=== PATIENT | female | born 1990 | race Hispanic/Latino ===

== ENCOUNTER 2016-10-01 11:07 | Emergency (ER) | payer MEDICAID ==
[2016-10-01 11:32] VITALS: BMI 40.0
[2016-10-01 11:35] VITALS: TEMP 98.6; O2SAT 98
--- NOTE | 2016-10-01 12:10 | ED PDOC ---
Arrival/HPI - General Chief Complaint: Female Genitourinary Time Seen by Provider: 10/01/16 11:54 Historian: Patient - History of Present Illness Narrative History of Present Illness (Text): 10/01/16 12:07 26 y.o. female whose PMHx includes Bipolar d/o and is ; she says she got her regular menses last month from 08/27 - 08/31 but her expected period has not come this month. She took a home test which was positive twice over the past two days. She denies any symptoms such as breast tenderness or nausea. She says she gets an occasional suprapubic pressure but no urinary symptoms. She says she recently started two medications for her bipolar but no acute psych symptoms. Past Medical History - Infectious Disease Hx of Infectious Diseases: None - Tetanus Immunization Tetanus Immunization: Unknown - Past Medical History Past Medical History: No Previous - Cardiac Hx Cardiac Disorders: No - Pulmonary Hx Respiratory Disorders: No - Neurological Hx Neurological Disorder: No - HEENT Hx HEENT Disorder: No - Renal Hx Renal Disorder: No - Endocrine/Metabolic Hx Endocrine Disorders: No - Hematological/Oncological Hx Blood Disorders: Yes Hx Anemia: Yes - Integumentary Hx Dermatological Disorder: No - Musculoskeletal/Rheumatological Hx Musculoskeletal Disorders: No - Gastrointestinal Hx Gastrointestinal Disorders: Yes - Genitourinary/Gynecological Hx Genitourinary Disorders: No - Psychiatric Hx Psychophysiologic Disorder: Yes Hx Bipolar Disorder: Yes Hx Depression: No Hx Substance Use: No - Surgical History Hx Section: Yes - Anesthesia Hx Anesthesia: Yes Hx Anesthesia Reactions: No Hx Malignant Hyperthermia: No - Suicidal Assessment Feels Threatened In Home Enviroment: No Family/Social History Family/Social History: No Known Family HX Smoking Status: Former Smoker Hx Alcohol Use: No Hx Substance Use: No Hx Substance Use Treatment: No Allergies/Home Meds Allergies/Adverse Reactions: Allergies amoxicillin trihydrate [From Augmentin] Allergy (Verified 10/01/16 11:31) ANAPHYLAXIS Penicillins Allergy (Verified 10/01/16 11:31) ANAPHYLAXIS potassium clavulanate [From Augmentin] Allergy (Verified 10/01/16 11:31) ANAPHYLAXIS Home Medications: Home Meds Medication Instructions Recorded Confirmed Lamotrigine [Lamotrigine ER] 1 tab PO BID 10/01/16 10/01/16 Topiramate [Topamax] 1 tab PO BID 10/01/16 10/01/16 Review of Systems - Review of Systems Constitutional: absent: Fevers Respiratory: absent: Cough Gastrointestinal: absent: Abdominal Pain, Nausea, Vomiting Genitourinary Female: Other (occsional suprapubic pressure). absent: Dysuria, Vaginal Bleeding Physical Exam Vital Signs Temp Pulse Resp BP Pulse Ox 10/01/16 13:08 89 18 124/71 98 10/01/16 11:32 98.6 F 92 H 16 126/75 98 Temperature: Afebrile Blood Pressure: Normal Pulse: Regular Respiratory Rate: Normal Appearance: Positive for: Well-Appearing, Non-Toxic, Comfortable Pain Distress: None Mental Status: Positive for: Alert and Oriented X 3 - Systems Exam Head: Present: Atraumatic Respiratory/Chest: Present: Clear to Auscultation, Good Air Exchange. No: Respiratory Distress, Accessory Muscle Use Cardiovascular: Present: Regular Rate and Rhythm, Normal S1, S2. No: Murmurs Abdomen: Present: Normal Bowel Sounds. No: Tenderness, Distention, Peritoneal Signs Medical Decision Making ED Course and Treatment: 10/01/16 13:57 ER POC HCG was negative, but blood sent shows beta-HCG of 466; she is asymptomatic. Patient insists she has not had intercourse in about 6 weeks. Sono with no evidence of at this time. Case discussed with OBGYN, Dr. Villegas, who said that HCG should be retested in several days, and if still positive and no , she should f/u with OBGYN and tested for lupus. It is also possible it is related to the medications. Urine shows possible UTI - will start on macrobid and f/u OB. - Lab Interpretations Lab Results: Lab Results 10/01/16 12:20: Beta HCG, Quant 466.90 H, Urine Color Yellow, Urine Appearance Clear, Urine pH 6.0, Ur Specific [place] 1.025, Urine Protein Trace H, Urine Glucose (UA) Negative, Urine Ketones Trace H, Urine Blood Negative, Urine Nitrate Negative, Urine Bilirubin Negative, Urine Urobilinogen 0.2, Ur Leukocyte Esterase Moderate H, Urine RBC Negative, Urine WBC 2 - 5, Ur Epithelial Cells 4 - 5, Urine Bacteria Many - RAD Interpretation Radiology Orders: 10/01/16 14:06 TRANSVAGINAL [US] Stat Disposition/Present on Arrival - Present on Arrival Any Indicators Present on Arrival: No History of DVT/PE: No History of Uncontrolled Diabetes: No Urinary Catheter: No History of Decub. Ulcer: No History Surgical Site Infection Following: None - Disposition Have Diagnosis and Disposition been Completed?: Yes Diagnosis: UTI (urinary tract infection), Elevated serum hCG Disposition: HOME/ ROUTINE Disposition Time: 14:00 Patient Plan: Discharge Patient Problems: Current Active Problems Problem Status Diagnosed Acute UTI (urinary tract infection) Acute Condition: GOOD Additional Instructions: Drink plenty of fluids. Your beta HCG level is 466 and should be repeated in 5- 7 days along with a repeat ultrasound. If it is still elevated and your OBGYN doctor is certain is not due to , then consider the cause being the medications and workup for lupus. Take macrobid as prescribed. Follow up also with your primary care doctor. Return to the emergency department if any new concerning symptoms. Prescriptions: Nitrofurantoin Macrocrystals [Macrobid] 100 mg PO BID #14 cap Referrals: Mahi Turner DO [Primary Care Provider] - Follow up with primary
[2016-10-01 12:34] LABS: URINE BILIRUBIN NEGATIVE (NEGATIVE); URINE BLOOD NEGATIVE (NEGATIVE); URINE GLUCOSE (UA) NEGATIVE (NEGATIVE); URINE KETONE TRACE mg/dL (NEGATIVE); URINE LEUKOCYTE ESTERASE MODERATE Leu/uL (NEGATIVE); URINE PROTEIN TRACE mg/dL (<30 mg/dL); URINE UROBILINOGEN 0.2 E.U./dL (<1 E.U./dL)
[2016-10-01 12:39] LABS: URINE APPEARANCE CLEAR (CLEAR); URINE COLOR YELLOW (YELLOW)
[2016-10-01 13:30] VITALS: BP 124/71; PULSE 89; RESP 18
[2016-10-01 13:33] LABS: URINE BACTERIA MANY (NEG); URINE RBC NEGATIVE /hpf (0-2)
--- NOTE | 2016-10-01 15:08 | US ---
HISTORY: HCG positive 466 but denies intercourse in 6 weeks. LMP 08/27/2016 regular COMPARISON: 04/01/2015 TECHNIQUE: Transvaginal technique utilized and Doppler applied FINDINGS: UTERUS: The uterus is anteverted and measures 9.9 x 5.3 x 6.6 cm. Normal in size and appearance. No fibroid or other mass lesion seen. No intrauterine gestational sac is noted ENDOMETRIUM: Measures 12 mm in diameter. Nonspecific at this age group CERVIX: Several cervical nabothian cysts are noted RIGHT OVARY: Measures 2.9 x 2.2 x 2.0 cm cm. No solid mass. Normal flow. LEFT OVARY: Measures 3.1 x 2.4 x 2.3 cm. No solid mass. Normal flow. 1.3 x 1.4 x 1.1 cm left ovarian cystic focus is noted. The corpus luteal cyst -an early ectopic are some considerations. FREE FLUID: No significant free fluid noted. OTHER FINDINGS: None. IMPRESSION: No intrauterine gestational sac. Findings are nonspecific. An early ectopic is not excluded. A very early intrauterine gestation less than 5 weeks is another consideration. Consider follow-up pelvic ultrasound imaging 7 to 10 days with serial beta HCG levels.
== END 2016-10-01 15:36 | disposition home or self-care (01) ==
LOC: ED 11:07
DX: N39.0 Urinary tract infection, site not specified (principal); R74.8 Abnormal levels of other serum enzymes

== ENCOUNTER 2016-10-19 11:14 | Emergency (ER) | payer MEDICAID ==
[2016-10-19 11:20] VITALS: RESP 18; TEMP 97.8; O2SAT 98; BMI 42.9
[2016-10-19 12:35] LABS: PH,URINE 7.5 (4.7-8.0); URINE APPEARANCE SL CLOUDY (CLEAR); URINE BILIRUBIN NEGATIVE (NEGATIVE); URINE BLOOD NEGATIVE (NEGATIVE); URINE COLOR YELLOW (YELLOW); URINE GLUCOSE (UA) NEGATIVE (NEGATIVE); URINE KETONE NEGATIVE (NEGATIVE); URINE LEUKOCYTE ESTERASE SMALL Leu/uL (NEGATIVE); URINE PROTEIN TRACE mg/dL (<30 mg/dL); URINE UROBILINOGEN 0.2 E.U./dL (<1 E.U./dL)
[2016-10-19 12:40] LABS: URINE BACTERIA SMALL (NEG); URINE RBC NEGATIVE /hpf (0-2)
[2016-10-19] MEDS ORDERED: Sodium Chloride 0.9% 1,000 ML IV STA (12:42)
[2016-10-19 13:06] LABS: ADD MANUAL DIFF? NO
[2016-10-19 13:15] LABS: BASO # 0.01 K/mm3 (0.0-2.0); BASO % 0.1 % (0.0-3.0); EOS % 0.3 % (1.5-5.0); GRAN # 5.82 (1.4-6.5); GRAN % 84.5 % (50.0-68.0); HEMATOCRIT 34.9 % (36.0-48.0); LYMPH # 0.7 (1.2-3.4); LYMPH % 10.7 % (22.0-35.0); MEAN CELL VOLUME 74.9 fL (80.0-105.0); MEAN CORPUSCULAR HEMOGLOBIN 24.5 pg (25.0-35.0); MEAN CORPUSCULAR HGB CONC 32.7 g/dl (31.0-37.0); MEAN PLATELET VOLUME 10.4 fl (7.0-11.0); MONO # 0.3 (0.1-0.6); MONO % 4.4 % (1.0-6.0); PLATELET COUNT 221 10^3/uL (120.0-450.0); RED CELL DISTRIBUTION WIDTH 15.8 % (11.5-14.5); WHITE BLOOD COUNT 6.9 10^3/ul (4.5-11.0)
[2016-10-19 13:19] LABS: ALB/GLOB RATIO 1.2 (1.1-1.8); ALKALINE PHOSPHATASE 34 U/L (38-133); ALT/SGPT 35 U/L (7-56); AST/SGOT 28 U/L (15-39); BILIRUBIN,TOTAL 0.6 mg/dL (0.2-1.3); BLOOD UREA NITROGEN 9 mg/dL (7-21); CALCIUM 9.2 mg/dL (8.4-10.5); CARBON DIOXIDE 22 mmol/L (21-33); CHLORIDE 102 mmol/L (98-107); GFR AFRICAN-AMERICAN > 60; GLUCOSE,RANDOM 79 mg/dL (70-110); SODIUM 135 mmol/L (132-148); TOTAL PROTEIN 7.3 g/dL (5.8-8.3)
[2016-10-19 13:23] LABS: POTASSIUM 4.2 mmol/L (3.6-5.0)
--- NOTE | 2016-10-19 14:56 | US ---
PROCEDURE: HISTORY: 2 months preg, abdominal pain COMPARISON: TECHNIQUE: FINDINGS: Intrauterine gestational sac correspond to 5 weeks and 5 days gestational age. With pole measuring 1 cm corresponds to 7 weeks gestational age. heart motion identified. IMPRESSION: Intrauterine gestation corresponding to 7 weeks gestational age. heart motion identified.
--- NOTE | 2016-10-19 15:35 | ED PDOC ---
Arrival/HPI - General Chief Complaint: Abdominal Pain Time Seen by Provider: 10/19/16 11:16 Historian: Patient - History of Present Illness Narrative History of Present Illness (Text): 10/19/16 17:10 Patient reports that she is 2 months , reports of suprapubic pain and atraumatic low back pain. Otherwise: (+) N/V, (-) vaginal bleeding, (-) vaginal discharge, (-) fever, (-) urinary symptoms, (-) prior salpingitis, (-) prior ectopic . Has (+) care and (+) prior OB ultrasound with confirmed IUP at OB office. Past Medical History - Provider Review Nursing Documentation Reviewed: Yes - Infectious Disease Hx of Infectious Diseases: None - Tetanus Immunization Tetanus Immunization: Unknown - Past Medical History Past Medical History: No Previous - Cardiac Hx Cardiac Disorders: No - Pulmonary Hx Respiratory Disorders: No - Neurological Hx Neurological Disorder: No - HEENT Hx HEENT Disorder: No - Renal Hx Renal Disorder: No - Endocrine/Metabolic Hx Endocrine Disorders: No - Hematological/Oncological Hx Blood Disorders: Yes Hx Anemia: Yes - Integumentary Hx Dermatological Disorder: No - Musculoskeletal/Rheumatological Hx Musculoskeletal Disorders: No - Gastrointestinal Hx Gastrointestinal Disorders: Yes - Genitourinary/Gynecological Hx Genitourinary Disorders: No - Psychiatric Hx Psychophysiologic Disorder: Yes Hx Bipolar Disorder: Yes Hx Depression: No Hx Substance Use: No - Surgical History Hx Section: Yes (x 2) - Anesthesia Hx Anesthesia: Yes Hx Anesthesia Reactions: No Hx Malignant Hyperthermia: No - Suicidal Assessment Feels Threatened In Home Enviroment: No Family/Social History - Physician Review Nursing Documentation Reviewed: Yes Family/Social History: No Known Family HX Smoking Status: Former Smoker Hx Alcohol Use: No Hx Substance Use: No Hx Substance Use Treatment: No Allergies/Home Meds Allergies/Adverse Reactions: Allergies amoxicillin trihydrate [From Augmentin] Allergy (Verified 10/19/16 11:20) ANAPHYLAXIS Penicillins Allergy (Verified 10/19/16 11:20) ANAPHYLAXIS potassium clavulanate [From Augmentin] Allergy (Verified 10/19/16 11:20) ANAPHYLAXIS Review of Systems - Review of Systems Constitutional: Normal, Fatigue (related to ). absent: Weight Change, Fevers Respiratory: Normal. absent: SOB, Cough, Sputum Cardiovascular: Normal. absent: Chest Pain, Palpitations Gastrointestinal: Normal, Abdominal Pain, Vomiting. absent: Stool Changes, Constipation Genitourinary Female: Normal. absent: Dysuria, Frequency, Hematuria Skin: Normal. absent: Rash, Pruritis, Skin Lesions Physical Exam - Physical Exam Narrative Physical Exam (Text): 10/19/16 17:13 GENERAL APPEARANCE: Patient is awake, alert, oriented x 3, in no acute distress. SKIN: Warm, dry; (-) cyanosis. EYES: (-) conjunctival pallor. ENMT: Mucous membranes moist. NECK: (-) tenderness, (-) stiffness, (-) lymphadenopathy. CHEST AND RESPIRATORY: (-) rales, (-) rhonchi, (-) wheezes; breath sounds equal bilaterally. HEART AND CARDIOVASCULAR: (-) irregularity; (-) murmur, (-) gallop. ABDOMEN AND GI: Soft; (-) tenderness. EXTREMITIES: (-) deformity. NEURO AND PSYCH: Mental status as above; (-) focal findings. Vital Signs Temp Pulse Resp BP Pulse Ox 10/19/16 15:15 88 18 111/68 98 10/19/16 11:16 97.8 F 103 H 18 118/62 98 Medical Decision Making ED Course and Treatment: 10/19/16 17:14 26 yo F presents with suprapubic pain and low back pain. Plan: -- Labs -- Urinalysis -- Reglan -- NS bolus -- Reassess and disposition -- US TV Laboratory results reviewed, patient noted to have a UTI, ultrasound results still pending. On reevaluation, the patient's lying in bed comfortably in no acute distress. IV fluids still infusing at this time. Ultrasound results shows (-) seven-week IUP with heart motion detected. Otherwise no acute findings. On reevaluation, the patient reports improvement of symptoms, denies any abdominal pain or vaginal bleeding at this time. Abdomen remained soft with no tenderness, no guarding, rebound, no CVA tenderness. Labs and ultrasound results discussed with the patient in great detail. Based on history, exam and diagnostic results plan will be for patient follow- up. Prescription provided. Patient states she fully agrees with and understands discharge instructions. States that she agrees with the plan and disposition. Verbalized and repeated discharge instructions and plan. I have given the patient opportunity to ask any additional questions. Follow up with OB physician in 1-2 days without fail. Advised to take medication as prescribed. Return to the emergency room at any time for any new or worsening symptoms. - Lab Interpretations Lab Results: 10/19/16 13:04 10/19/16 13:04 Lab Results 10/19/16 15:01: Blood Type Confirm O POSITIVE 10/19/16 14:40: Blood Type O POSITIVE, Antibody Screen Negative, BBK History Checked No verified bt 10/19/16 13:04: Beta HCG, Quant 21480.00 H 10/19/16 13:04: Sodium 135, Potassium 4.2, Chloride 102, Carbon Dioxide 22, Anion Gap 15, BUN 9, Creatinine 0.5, Est GFR ( Amer) > 60, Est GFR (Non- Af Amer) > 60, Random Glucose 79, Calcium 9.2, Total Bilirubin 0.6, AST 28, ALT 35, Alkaline Phosphatase 34 L, Total Protein 7.3, Albumin 4.1, Globulin 3.3, Albumin/Globulin Ratio 1.2 10/19/16 13:04: WBC 6.9, RBC 4.66, Hgb 11.4 L, Hct 34.9 L, MCV 74.9 L, MCH 24.5 L, MCHC 32.7, RDW 15.8 H, Plt Count 221, MPV 10.4, Gran % 84.5 H, Lymph % (Auto ) 10.7 L, [place] % (Auto) 4.4, Eos % (Auto) 0.3 L, Baso % (Auto) 0.1, Gran # 5.82 , Lymph # 0.7 L, [place] # 0.3, Eos # 0.0, Baso # 0.01 10/19/16 12:31: Urine Color Yellow, Urine Appearance Sl cloudy, Urine pH 7.5, Ur Specific [place] 1.020, Urine Protein Trace H, Urine Glucose (UA) Negative, Urine Ketones Negative, Urine Blood Negative, Urine Nitrate Negative, Urine Bilirubin Negative, Urine Urobilinogen 0.2, Ur Leukocyte Esterase Small H, Urine RBC Negative, Urine WBC 2 - 5, Ur Epithelial Cells 1 - 3, Urine Bacteria Small - RAD Interpretation Radiology Orders: 10/19/16 12:41 OB TRANSVAGINAL [US] Stat - Medication Orders Current Medication Orders: Discontinued Medications Sodium Chloride (Sodium Chloride 0.9%) 1,000 mls @ 1,000 mls/hr IV .Q1H STA Stop: 10/19/16 13:41 Last Admin: 10/19/16 13:01 Dose: 1,000 mls/hr Metoclopramide HCl (Reglan) 10 mg IVP STAT STA Stop: 10/19/16 12:43 Last Admin: 10/19/16 13:02 Dose: 10 mg - PA / STITCHER STANDARD MACHINE / Resident Statement / has reviewed & agrees with the documentation as recorded. Disposition/Present on Arrival - Present on Arrival Any Indicators Present on Arrival: No History of DVT/PE: No History of Uncontrolled Diabetes: No Urinary Catheter: No History of Decub. Ulcer: No History Surgical Site Infection Following: None - Disposition Have Diagnosis and Disposition been Completed?: Yes Diagnosis: UTI (urinary tract infection), Vomiting alone, Threatened Disposition: HOME/ ROUTINE Disposition Time: 15:00 Patient Plan: Discharge Condition: GOOD Discharge Instructions (ExitCare): Threatened Miscarriage (ED), Urinary Tract Infection in Women (ED), Acute Nausea and Vomiting (ED) Print Language: FRENCH Additional Instructions: Thank you for letting us take care of you today. You were treated for UTI, vomiting, threatened . The emergency medical care you received today was directed at your acute symptoms. If you were prescribed any medication, please fill it and take as directed. It may take several days for your symptoms to resolve. Return to the Emergency Department if your symptoms worsen, do not improve, or if you have any other problems. Please contact your OB in 2 days for re-evaluation and follow upt. Bring any paperwork you were given at discharge with you along with any medications you are taking to your follow up visit. Our treatment cannot replace ongoing medical care by a primary care provider (PCP) outside of the emergency department. Thank you for allowing the [facility] team to be part of your care today. Prescriptions: Metoclopramide HCl [Reglan] 10 mg PO QID PRN #20 tablet PRN Reason: Nausea/Vomiting Nitrofurantoin Macrocrystals [Macrobid] 100 mg PO BID #20 cap Referrals: Mahi Turner DO [Primary Care Provider] - Follow up with primary Forms: WORK NOTE
[2016-10-19 15:36] VITALS: BP 111/68; PULSE 88
== END 2016-10-19 15:58 | disposition home or self-care (01) ==
LOC: ED 11:14
DX: O20.0 Threatened abortion (principal); O21.0 Mild hyperemesis gravidarum; O23.41 Unspecified infection of urinary tract in pregnancy, first trimester; Z3A.01 Less than 8 weeks gestation of pregnancy
CPT/HCPCS: 76817; 80053; 81001; 84702; 85025; 86850; 86900; 87086; 96374; 99285; J2765; J7040

== ENCOUNTER 2017-04-28 09:06 | Emergency (ER) | payer MEDICAID ==
[2017-04-28 09:25] VITALS: BMI 24.9
[2017-04-28 09:27] VITALS: TEMP 98.5
--- NOTE | 2017-04-28 09:34 | ED PDOC ---
Arrival/HPI - General Historian: Patient - History of Present Illness Time/Duration: Other (2 days) Quality: Aching Context: Home <Belinda Way P - Last Filed: 04/28/17 12:00> <Justin Mills P - Last Filed: 04/28/17 18:20> - General Chief Complaint: Upper Extremity Problem/Injury Time Seen by Provider: 04/28/17 09:33 - History of Present Illness Narrative History of Present Illness (Text): 04/28/17 09:34 This 27 yo female with pmh bipolar, and who recently had an elective , presents to this ED c/o left posterior scapulae pain x 2 days. Patient stated while walking downstairs, she tripped and fell down. Patient stated pain worsen with movement and deep inspiration. Patient denies cp, sob, hemoptysis, skin abrasion, ecchymosis, dizziness, weakness, paresthesias, arm pain, elbow pain, wrist pain, neck pain, back pain, urinary symptoms, or abnormal gait. ( Belinda [address]) Past Medical History - Provider Review Nursing Documentation Reviewed: Yes - Infectious Disease Hx of Infectious Diseases: None - Tetanus Immunization Tetanus Immunization: Unknown - Past Medical History Past Medical History: No Previous - Cardiac Hx Cardiac Disorders: No - Pulmonary Hx Respiratory Disorders: No - Neurological Hx Neurological Disorder: No - HEENT Hx HEENT Disorder: No - Renal Hx Renal Disorder: No - Endocrine/Metabolic Hx Endocrine Disorders: No - Hematological/Oncological Hx Blood Disorders: Yes Hx Anemia: Yes - Integumentary Hx Dermatological Disorder: No - Musculoskeletal/Rheumatological Hx Musculoskeletal Disorders: No - Gastrointestinal Hx Gastrointestinal Disorders: Yes - Genitourinary/Gynecological Hx Genitourinary Disorders: No - Psychiatric Hx Psychophysiologic Disorder: Yes Hx Bipolar Disorder: Yes Hx Depression: No Hx Substance Use: No - Surgical History Hx Section: Yes (x 2) - Anesthesia Hx Anesthesia: Yes Hx Anesthesia Reactions: No Hx Malignant Hyperthermia: No - Suicidal Assessment Feels Threatened In Home Enviroment: No <Belinda Way - Last Filed: 04/28/17 12:00> Family/Social History - Physician Review Nursing Documentation Reviewed: Yes Family/Social History: Other (noncontributory) Smoking Status: Former Smoker Hx Alcohol Use: No Hx Substance Use: No Hx Substance Use Treatment: No <Way,Nahim P - Last Filed: 04/28/17 12:00> Allergies/Home Meds <Belinda Way P - Last Filed: 04/28/17 12:00> <MillsJustin P - Last Filed: 04/28/17 18:20> Allergies/Adverse Reactions: Allergies Penicillins Allergy (Verified 04/28/17 09:28) ANAPHYLAXIS Home Medications: Home Meds Medication Instructions Recorded Confirmed Topiramate [Topamax] 200 tab PO BID 04/28/17 04/28/17 lamoTRIgine [LaMICtal] 100 mg PO BID 04/28/17 04/28/17 Review of Systems - Review of Systems Constitutional: Normal. absent: Fatigue, Weight Change, Fevers, Night Sweats Eyes: Normal ENT: Normal Respiratory: Normal. absent: SOB, Cough, Sputum Cardiovascular: Normal. absent: Chest Pain Gastrointestinal: Normal. absent: Abdominal Pain, Nausea, Vomiting Genitourinary Female: Normal. absent: Dysuria, Frequency Musculoskeletal: Other (see hpi) Skin: Normal Neurological: Normal Endocrine: Normal Hemo/Lymphatic: Normal Psychiatric: Normal. absent: Anxiety, Depression, Suicidal Ideation <Belinda Way P - Last Filed: 04/28/17 12:00> Physical Exam Temperature: Afebrile Blood Pressure: Normal Pulse: Regular Respiratory Rate: Normal Appearance: Positive for: Well-Appearing, Non-Toxic, Comfortable Pain Distress: None Mental Status: Positive for: Alert and Oriented X 3 - Systems Exam Head: Present: Atraumatic, Normocephalic Pupils: Present: PERRL Extroacular Muscles: Present: EOMI Conjunctiva: Present: Normal Mouth: Present: Moist Mucous Membranes Neck: Present: Normal Range of Motion. No: Meningeal Signs, MIDLINE TENDERNESS , Paraspinal Tenderness, Trachea Midline Respiratory/Chest: Present: Clear to Auscultation, Good Air Exchange. No: Respiratory Distress, Accessory Muscle Use, Wheezes, Retracting, Rhonchi Cardiovascular: Present: Regular Rate and Rhythm, Normal S1, S2. No: Murmurs Abdomen: Present: Normal Bowel Sounds. No: Tenderness, Distention, Peritoneal Signs, Rebound, Guarding Back: Present: Normal Inspection. No: CVA Tenderness, Midline Tenderness, Paraspinal Tenderness, Pain with Leg Raise Upper Extremity: Present: Normal Inspection, Normal ROM, NORMAL PULSES, Neurovascularly Intact, Capillary Refill < 2s. No: Cyanosis, Edema Lower Extremity: Present: Normal Inspection, NORMAL PULSES, Normal ROM, Neurovascularly Intact, Capillary Refill < 2 s. No: Edema, CALF TENDERNESS Neurological: Present: GCS=15, CN II-XII Intact, Speech Normal, Motor Func Grossly Intact, Normal Sensory Function, Normal Cerebellar Funct, Gait Normal, Memory Normal Skin: Present: Warm, Dry, Normal Color. No: Rashes Psychiatric: Present: Alert, Oriented x 3, Normal Insight, Normal Concentration. No: Suicidal Ideation, Homicidal Ideation, Delusional, Hallucinations, Intoxicated <Belinda Way P - Last Filed: 04/28/17 12:00> Vital Signs Temp Pulse Resp BP Pulse Ox 04/28/17 12:14 81 18 104/64 100 04/28/17 12:03 86 18 112/68 98 04/28/17 09:22 98.5 F 98 H 20 114/71 98 Medical Decision Making Re-evaluation Time: 11:45 Reassessment Condition: Re-examined, Improved - Lab Interpretations I have reviewed the lab results: Yes Interpretation: No clinic. lab abnormalty <Belinda Way P - Last Filed: 04/28/17 12:00> <Justin Mills P - Last Filed: 04/28/17 18:20> ED Course and Treatment: 04/28/17 11:45 Re-evaluation. Patient feels better. Discussed results and plan with patient who expresses understanding. All questions answered and there is agreement with the plan to discharge home with instructions. Patient stable for discharge. Return if symptoms persist or worsen. Patient was recommended to f/u with pmd, and to f/u rine culture report in 3-5 days. Patient was recommended to take medications 2 hours before her regular bipolar medication. (Belinda Way P) - Lab Interpretations Lab Results: Lab Results 04/28/17 10:30: Urine Color Yellow, Urine Appearance Sl cloudy, Urine pH 6.5, Ur Specific [place] 1.020, Urine Protein Negative, Urine Glucose (UA) Negative, Urine Ketones Negative, Urine Blood Negative, Urine Nitrate Negative, Urine Bilirubin Negative, Urine Urobilinogen 0.2, Ur Leukocyte Esterase Small H, Urine RBC 0 - 2, Urine WBC 0 - 2, Ur Epithelial Cells 6 - 8, Urine Bacteria Many - RAD Interpretation Narrative RAD Interpretations (Text): 04/28/17 11:44 Rib x-ray series: no fx or pneumo Shoulder x-rays: No fx or dislocation (Belinda Way) Radiology Orders: 04/28/17 09:45 SHOULDER LEFT [RAD] Stat 04/28/17 09:46 RIBS LEFT & PA CHEST [RAD] Stat - Medication Orders Current Medication Orders: Discontinued Medications Ketorolac Tromethamine (Toradol) 30 mg IM STAT STA Stop: 04/28/17 09:48 Last Admin: 04/28/17 10:46 Dose: 30 mg MAR Pain Assessment Document 04/28/17 10:46 OCS (Rec: 04/28/17 10:46 OCS [id number]) Pain Reassessment Is this a pain reassessment? Yes Sleep Is patient sleeping during reassessment? No Presence of Pain Presence of Pain Yes Pain Scale Used Pain Scale Used Numeric Location Left, Right or Bilateral Left Pain Location Body Site Shoulder Description Description Constant Intensity of Pain at present 10 Pain Behavior Guarding Aggravating Factors ADL's IM Administration Charges Document 04/28/17 10:46 OCS (Rec: 04/28/17 10:46 OCS [facility] [id number]) Injection Site MAR Injection Site Right Deltoid Charges for Administration # of IM Administrations 1 - PA / ORAL THERAPIST / Resident Statement MD/DO has reviewed & agrees with the documentation as recorded. <Justin Mills P - Last Filed: 04/28/17 18:20> Disposition/Present on Arrival - Present on Arrival Any Indicators Present on Arrival: No History of DVT/PE: No History of Uncontrolled Diabetes: No Urinary Catheter: No History of Decub. Ulcer: No History Surgical Site Infection Following: None - Disposition Have Diagnosis and Disposition been Completed?: Yes Disposition Time: 11:46 Patient Plan: Discharge <Belinda Way - Last Filed: 04/28/17 12:00> <Justin Mills - Last Filed: 04/28/17 18:20> - Disposition Diagnosis: Muscle strain of left scapular region Disposition: HOME/ ROUTINE Condition: GOOD Discharge Instructions (ExitCare): Muscle Strain (ED) Additional Instructions: Call private doctor for follow up visit in 1-2 days. take medication as instructed. Return to emergency if symptoms worsen. Prescriptions: Diazepam [Valium] 2 mg PO DAILY #6 tab Famotidine [Pepcid] 40 mg PO DAILY #10 tablet Naproxen 500 mg PO BID PRN #14 tab PRN Reason: Pain, Severe (8-10) Referrals: Delisa Jean MD [Family Provider] - Follow up with primary Forms: [facility] [facility] ([place]), WORK NOTE
[2017-04-28 11:09] LABS: PH,URINE 6.5 (4.7-8.0); URINE BILIRUBIN NEGATIVE (NEGATIVE); URINE BLOOD NEGATIVE (NEGATIVE); URINE GLUCOSE (UA) NEGATIVE (NEGATIVE); URINE KETONE NEGATIVE (NEGATIVE); URINE LEUKOCYTE ESTERASE SMALL Leu/uL (NEGATIVE); URINE PROTEIN NEGATIVE mg/dL (<30 mg/dL); URINE UROBILINOGEN 0.2 E.U./dL (<1 E.U./dL)
[2017-04-28 11:14] LABS: URINE APPEARANCE SL CLOUDY (CLEAR); URINE COLOR YELLOW (YELLOW)
[2017-04-28 11:32] LABS: URINE RBC 0 - 2 /hpf (0-2); URINE WBC 0 - 2 /hpf (0-6)
[2017-04-28 11:33] LABS: URINE BACTERIA MANY (NEG)
--- NOTE | 2017-04-28 11:38 | RAD ---
PROCEDURE: Radiographs of the Chest and Left Ribs. HISTORY: pain s/p fall COMPARISON: 04/12/2016. TECHNIQUE: Frontal radiograph of the chest and multiple oblique radiographs of the left ribs were obtained. FINDINGS: LEFT RIBS: No fracture or focal lesion visualized. LUNGS: Clear. PLEURA: No pneumothorax or pleural fluid. CARDIOVASCULAR: Normal sized heart. No pulmonary vascular congestion. OTHER FINDINGS: None. IMPRESSION: Unremarkable radiographs of the chest and left ribs. No left rib fracture.
--- NOTE | 2017-04-28 11:39 | RAD ---
PROCEDURE: Radiographs of the Left Shoulder HISTORY: pain COMPARISON: No prior. FINDINGS: BONES: Normal. No fracture. JOINTS: Normal. Glenohumeral and acromioclavicular joints preserved. No osteoarthritis. SOFT TISSUES: Normal. OTHER FINDINGS: None. IMPRESSION: Normal radiographs of the left shoulder.
[2017-04-28 12:03] VITALS: RESP 18
[2017-04-28 12:15] VITALS: BP 104/64; PULSE 81; O2SAT 100
== END 2017-04-28 12:05 | disposition home or self-care (01) ==
LOC: ED 09:06
DX: S46.912A Strain of unspecified muscle, fascia and tendon at shoulder and upper arm level, left arm, initial encounter (principal); W01.0XXA Fall on same level from slipping, tripping and stumbling without subsequent striking against object, initial encounter; Z87.891 Personal history of nicotine dependence; Z88.0 Allergy status to penicillin
CPT/HCPCS: 71101; 73030; 81001; 87086; 96372; 99283; J1885

== ENCOUNTER 2017-07-21 13:31 | Emergency (ER) | payer MEDICAID ==
[2017-07-21 13:57] VITALS: BP 119/65; PULSE 94; RESP 16; TEMP 97.3; O2SAT 100; BMI 34.9
[2017-07-21] MEDS ORDERED: Sodium Chloride 0.9% 500 ML IV STA (14:08)
--- NOTE | 2017-07-21 14:13 | ED PDOC ---
Arrival/HPI - General Chief Complaint: Abdominal Pain Time Seen by Provider: 07/21/17 13:46 Historian: Patient, Other (Grandfather) - History of Present Illness Time/Duration: Other (Yesterday) Symptom Onset: Gradual Symptom Course: Unchanged Quality: Aching Severity Level: Moderate Activities at Onset: Rest Associated Symptoms (Text): 07/21/17 14:10 Patient complains of epigastric abdominal pain since yesterday morning. She reports that she has never had this pain previously, though she has been seen multiple times in the emergency department for abdominal pain with negative workup. No nausea vomiting or diarrhea. No genitourinary symptoms. No vaginal discharge or bleeding. LMP is July 02. No fever or chills. No injury or trauma. She appears comfortable and in no distress. No chest pain palpitations or dyspnea. No radiation of the pain. No back pain. Past Medical History - Infectious Disease Hx of Infectious Diseases: None - Tetanus Immunization Tetanus Immunization: Unknown - Past Medical History Past Medical History: No Previous - Cardiac Hx Cardiac Disorders: No - Pulmonary Hx Respiratory Disorders: No - Neurological Hx Neurological Disorder: No - HEENT Hx HEENT Disorder: No - Renal Hx Renal Disorder: No - Endocrine/Metabolic Hx Endocrine Disorders: No - Hematological/Oncological Hx Blood Disorders: Yes Hx Anemia: Yes - Integumentary Hx Dermatological Disorder: No - Musculoskeletal/Rheumatological Hx Musculoskeletal Disorders: No - Gastrointestinal Hx Gastrointestinal Disorders: Yes - Genitourinary/Gynecological Hx Genitourinary Disorders: No - Psychiatric Hx Psychophysiologic Disorder: Yes Hx Bipolar Disorder: Yes Hx Depression: No Hx Substance Use: No - Surgical History Hx Section: Yes (x 2) - Anesthesia Hx Anesthesia: Yes Hx Anesthesia Reactions: No Hx Malignant Hyperthermia: No - Suicidal Assessment Feels Threatened In Home Enviroment: No Family/Social History - Physician Review Nursing Documentation Reviewed: Yes Family/Social History: Unknown Family HX Smoking Status: Light Smoker < 10 Cigarettes Daily Hx Alcohol Use: Yes Hx Substance Use: No Hx Substance Use Treatment: No Allergies/Home Meds Allergies/Adverse Reactions: Allergies Penicillins Allergy (Verified 04/28/17 09:28) ANAPHYLAXIS Home Medications: Home Meds Medication Instructions Recorded Confirmed Topiramate [Topamax] 200 tab PO BID 04/28/17 04/28/17 lamoTRIgine [LaMICtal] 100 mg PO BID 04/28/17 04/28/17 Review of Systems - Physician Review All systems were reviewed & negative as marked: Yes - Review of Systems Constitutional: absent: Fatigue, Fevers Respiratory: Normal Cardiovascular: Normal Gastrointestinal: Abdominal Pain, Anorexia. absent: Constipation, Diarrhea, Nausea, Vomiting Genitourinary Female: absent: Dysuria, Frequency, Hematuria, Vaginal Bleeding, Vaginal Discharge Neurological: absent: Headache, Dizziness, Focal Weakness Physical Exam Vital Signs Temp Pulse Resp BP Pulse Ox 07/21/17 13:46 97.3 F L 94 H 16 119/65 100 Temperature: Afebrile Blood Pressure: Normal Pulse: Regular Respiratory Rate: Normal Appearance: Positive for: Well-Appearing, Non-Toxic, Comfortable, Other (Obese) Pain Distress: None Mental Status: Positive for: Alert and Oriented X 3 - Systems Exam Head: Present: Atraumatic, Normocephalic Pupils: Present: PERRL Extroacular Muscles: Present: EOMI Conjunctiva: Present: Normal Mouth: Present: Moist Mucous Membranes Pharnyx: No: ERYTHEMA, EXUDATE, TONSILS ENLARGED Neck: Present: Normal Range of Motion Respiratory/Chest: Present: Clear to Auscultation, Good Air Exchange. No: Respiratory Distress, Accessory Muscle Use Cardiovascular: Present: Regular Rate and Rhythm, Normal S1, S2. No: Murmurs Abdomen: Present: Tenderness (Mild epigastric), Normal Bowel Sounds. No: Distention, Peritoneal Signs, Rebound, Guarding Back: Present: Normal Inspection. No: CVA Tenderness, Midline Tenderness, Paraspinal Tenderness Upper Extremity: Present: Normal Inspection. No: Cyanosis, Edema Lower Extremity: Present: Normal Inspection. No: Edema Neurological: Present: GCS=15, CN II-XII Intact, Speech Normal, Motor Func Grossly Intact Skin: Present: Warm, Dry, Normal Color. No: Rashes Psychiatric: Present: Alert, Oriented x 3, Normal Insight, Normal Concentration Medical Decision Making ED Course and Treatment: 07/21/17 16:01 Symptoms improved. Ultrasound and workup is negative. We'll try Protonix and follow-up with PMD. Follow up in ER as needed. - Lab Interpretations Lab Results: 07/21/17 14:35 07/21/17 14:24 Lab Results 07/21/17 14:35: Urine Color Yellow, Urine Appearance Clear, Urine pH 5.5, Ur Specific [place] >= 1.030, Urine Protein Negative, Urine Glucose (UA) Negative, Urine Ketones Trace H, Urine Blood Negative, Urine Nitrate Negative, Urine Bilirubin Negative, Urine Urobilinogen 0.2, Ur Leukocyte Esterase Negative, Urine HCG, Qual Negative 07/21/17 14:35: WBC 8.3 D, RBC 4.64, Hgb 11.3 L, Hct 36.0, MCV 77.6 L, MCH 24.4 L, MCHC 31.4, RDW 15.8 H, Plt Count 214, MPV 10.3, Gran % 83.8 H, Lymph % ( Auto) 10.9 L, [place]ulk % (Auto) 4.2, Eos % (Auto) 1.0 L, Baso % (Auto) 0.1, Gran # 6.92 H, Lymph # (Auto) 0.9 L, Faulk # (Auto) 0.4, Eos # (Auto) 0.1, Baso # (Auto ) 0.01 07/21/17 14:24: Sodium 142, Potassium 4.1, Chloride 109 H, Carbon Dioxide 22, Anion Gap 16, BUN 10, Creatinine 0.7, Est GFR ( Amer) > 60, Est GFR (Non- Af Amer) > 60, Random Glucose 71, Calcium 9.4, Total Bilirubin 0.3, AST 15, ALT 30, Alkaline Phosphatase 26 L, Total Protein 6.3, Albumin 3.9, Globulin 2.4, Albumin/Globulin Ratio 1.6, Lipase 44 - RAD Interpretation Radiology Orders: 07/21/17 14:08 ABDOMEN COMPLETE [US] Stat Ultrasound of the abdomen as read by the radiologist shows no acute findings. Nuclear Auxiliary Operator: Radiologist - Medication Orders Current Medication Orders: Discontinued Medications Sodium Chloride (Sodium Chloride 0.9%) 500 mls @ 1,000 mls/hr IV .Q30M STA Stop: 07/21/17 14:37 Last Admin: 07/21/17 14:38 Dose: 1,000 mls/hr eMAR Start Stop Document 07/21/17 14:38 HI (Rec: 07/21/17 14:38 HI [id number]) Intravenous Solution Start Date 07/21/17 Start Time 14:38 Pantoprazole Sodium (Protonix Inj) 40 mg IVP STAT STA Stop: 07/21/17 14:09 Last Admin: 07/21/17 15:30 Dose: 40 mg IVP Administration Document 07/21/17 15:30 HI (Rec: 07/21/17 16:10 HI [facility] [id number]) Charges for Administration # of IVP Administrations 1 Disposition/Present on Arrival - Present on Arrival Any Indicators Present on Arrival: No History of DVT/PE: No History of Uncontrolled Diabetes: No Urinary Catheter: No History of Decub. Ulcer: No History Surgical Site Infection Following: None - Disposition Have Diagnosis and Disposition been Completed?: Yes Diagnosis: Gastritis, Abdominal pain, Epigastric pain Disposition: HOME/ ROUTINE Disposition Time: 16:01 Patient Plan: Discharge Condition: GOOD Discharge Instructions (ExitCare): Epigastric Pain (ED) Additional Instructions: Follow-up with PMD. Follow up in ER as needed. Prescriptions: Pantoprazole Sodium [Protonix] 40 mg PO DAILY #20 ect Referrals: Mahi Turner DO [Primary Care Provider] - Follow up with primary Forms: [employer] (Guamanian)
[2017-07-21 15:08] LABS: ALB/GLOB RATIO 1.6 (1.1-1.8); ALBUMIN 3.9 g/dL (3.0-4.8); ALT/SGPT 30 U/L (7-56); AST/SGOT 15 U/L (14-36); BLOOD UREA NITROGEN 10 mg/dL (7-21); CALCIUM 9.4 mg/dL (8.4-10.5); GFR AFRICAN-AMERICAN > 60; GFR NON-AFRICAN AMERICAN > 60; LIPASE 44 U/L (23-300)
[2017-07-21 15:11] LABS: BASO # 0.01 K/mm3 (0.0-2.0); BASO % 0.1 % (0.0-3.0); EOS # 0.1 (0.0-0.7); GRAN # 6.92 (1.4-6.5); GRAN % 83.8 % (50.0-68.0); HEMOGLOBIN 11.3 g/dL (12.0-16.0); LYMPH # 0.9 (1.2-3.4); LYMPH % 10.9 % (22.0-35.0); MEAN CELL VOLUME 77.6 fl (80.0-105.0); MEAN CORPUSCULAR HEMOGLOBIN 24.4 pg (25.0-35.0); MEAN CORPUSCULAR HGB CONC 31.4 g/dl (31.0-37.0); MEAN PLATELET VOLUME 10.3 fl (7.0-11.0); MONO # 0.4 (0.1-0.6); MONO % 4.2 % (1.0-6.0); RBC 4.64 10^6/uL (3.5-6.1); RED CELL DISTRIBUTION WIDTH 15.8 % (11.5-14.5); WHITE BLOOD COUNT 8.3 10^3/ul (4.5-11.0)
[2017-07-21 15:16] LABS: PH,URINE 5.5 (4.7-8.0); URINE APPEARANCE CLEAR (CLEAR); URINE BILIRUBIN NEGATIVE (NEGATIVE); URINE BLOOD NEGATIVE (NEGATIVE); URINE COLOR YELLOW (YELLOW); URINE GLUCOSE (UA) NEGATIVE (NEGATIVE); URINE LEUKOCYTE ESTERASE NEGATIVE Leu/uL (NEGATIVE); URINE NITRATE NEGATIVE (NEGATIVE); URINE PROTEIN NEGATIVE mg/dL (<30 mg/dL); URINE UROBILINOGEN 0.2 E.U./dL (<1 E.U./dL)
--- NOTE | 2017-07-21 15:26 | US ---
HISTORY: epigastric pain COMPARISON: None. TECHNIQUE: Sonographic evaluation of the abdomen. FINDINGS: LIVER: Measures 16.3 cm. Normal echogenicity of the liver parenchyma. No mass. No intrahepatic bile duct dilatation. GALLBLADDER: Unremarkable. No gallstones. COMMON BILE DUCT: Measures 5 mm. No stones. No dilatation. PANCREAS: Unremarkable as visualized. No mass. No ductal dilatation. RIGHT KIDNEY: Measures 11.3 x 4.4 x 6.1cm. Normal echogenicity. No calculus, mass, or hydronephrosis. LEFT KIDNEY: Measures 11.4 x 4.7 x 7.1cm. Normal echogenicity. No calculus, mass, or hydronephrosis. SPLEEN: Normal in size and contour. No mass. 11.9 x 6.9 x 6.0 cm AORTA: No aneurysmal dilatation. IVC: Unremarkable. OTHER FINDINGS: None. IMPRESSION: Unremarkable abdominal sonogram.
[2017-07-21 15:32] LABS: HCG,QUALITATIVE URINE NEGATIVE (NEGATIVE)
== END 2017-07-21 16:10 | disposition home or self-care (01) ==
LOC: ED 13:31
DX: K29.70 Gastritis, unspecified, without bleeding (principal); R10.13 Epigastric pain; F17.210 Nicotine dependence, cigarettes, uncomplicated
CPT/HCPCS: 76700; 80053; 81003; 83690; 84703; 85025; 96374; 99283; C9113; J7040

== ENCOUNTER 2017-07-24 16:23 | Emergency (ER) | payer MEDICAID ==
[2017-07-24 16:23] VITALS: BMI 34.9
--- NOTE | 2017-07-24 16:56 | ED PDOC ---
Arrival/HPI - General Chief Complaint: Flu-like Symptoms Time Seen by Provider: 07/24/17 16:36 - History of Present Illness Narrative History of Present Illness (Text): 07/24/17 16:52 27 yo female, presents with flu like symptoms x 2 days. reports mild cough sore throat, loss appetits subjective fever, did not get flu shot. Past Medical History - Infectious Disease Hx of Infectious Diseases: None - Tetanus Immunization Tetanus Immunization: Unknown - Past Medical History Past Medical History: No Previous - Cardiac Hx Cardiac Disorders: No - Pulmonary Hx Respiratory Disorders: No - Neurological Hx Neurological Disorder: No - HEENT Hx HEENT Disorder: No - Renal Hx Renal Disorder: No - Endocrine/Metabolic Hx Endocrine Disorders: No - Hematological/Oncological Hx Blood Disorders: Yes Hx Anemia: Yes - Integumentary Hx Dermatological Disorder: No - Musculoskeletal/Rheumatological Hx Musculoskeletal Disorders: No - Gastrointestinal Hx Gastrointestinal Disorders: Yes Hx Gastritis: Yes - Genitourinary/Gynecological Hx Genitourinary Disorders: No - Psychiatric Hx Psychophysiologic Disorder: Yes Hx Bipolar Disorder: Yes Hx Depression: No Hx Substance Use: No - Surgical History Hx Section: Yes (x 2) - Anesthesia Hx Anesthesia: Yes Hx Anesthesia Reactions: No Hx Malignant Hyperthermia: No - Suicidal Assessment Feels Threatened In Home Enviroment: No Family/Social History - Physician Review Nursing Documentation Reviewed: Yes Family/Social History: Unknown Family HX Smoking Status: Light Smoker < 10 Cigarettes Daily Hx Alcohol Use: Yes Hx Substance Use: No Hx Substance Use Treatment: No Allergies/Home Meds Allergies/Adverse Reactions: Allergies Penicillins Allergy (Verified 07/24/17 16:26) ANAPHYLAXIS Home Medications: Home Meds Medication Instructions Recorded Confirmed Topiramate [Topamax] 200 tab PO BID 04/28/17 07/24/17 lamoTRIgine [LaMICtal] 100 mg PO BID 04/28/17 07/24/17 Review of Systems - Review of Systems Constitutional: Fatigue, Fevers (subjective fever) Eyes: Normal ENT: Normal Respiratory: Cough Cardiovascular: Normal Gastrointestinal: Normal Genitourinary Female: Normal Musculoskeletal: Normal Skin: Normal Neurological: Normal Endocrine: Normal Hemo/Lymphatic: Normal Psychiatric: Normal Physical Exam Vital Signs Temp Pulse Resp BP Pulse Ox 07/24/17 18:04 98.4 F 80 18 123/78 98 07/24/17 16:30 100 F H 102 H 17 106/63 99 Temperature: Febrile Blood Pressure: Normal Pulse: Regular Respiratory Rate: Normal Appearance: Positive for: Well-Appearing, Non-Toxic, Comfortable Pain Distress: None Mental Status: Positive for: Alert and Oriented X 3 - Systems Exam Head: Present: Atraumatic, Normocephalic Pupils: Present: PERRL Extroacular Muscles: Present: EOMI Conjunctiva: Present: Normal Mouth: Present: Moist Mucous Membranes Pharnyx: Present: ERYTHEMA. No: EXUDATE Neck: Present: Normal Range of Motion Respiratory/Chest: Present: Clear to Auscultation, Good Air Exchange. No: Respiratory Distress, Accessory Muscle Use Cardiovascular: Present: Regular Rate and Rhythm, Normal S1, S2. No: Murmurs Abdomen: Present: Normal Bowel Sounds. No: Tenderness, Distention, Peritoneal Signs Back: Present: Normal Inspection Upper Extremity: Present: Normal Inspection. No: Cyanosis, Edema Lower Extremity: Present: Normal Inspection. No: Edema Neurological: Present: GCS=15, CN II-XII Intact, Speech Normal Skin: Present: Warm, Dry, Normal Color. No: Rashes Psychiatric: Present: Alert, Oriented x 3, Normal Insight, Normal Concentration Medical Decision Making ED Course and Treatment: 07/24/17 18:40 pt flu positive stable for dc. 07/24/17 18:40 speaking ful sentneces, vital stable. ambulatory steady gait. well appearing, - Lab Interpretations Lab Results: Lab Results 07/24/17 16:56: Influenza Typ A,B (EIA) Pos for influenza a H, Grp A Beta Strep Ag Negative - Medication Orders Current Medication Orders: Discontinued Medications Acetaminophen (Tylenol 325mg Tab) 975 mg PO STAT STA Stop: 07/24/17 16:52 Last Admin: 07/24/17 16:54 Dose: 975 mg MAR Pain/Vitals Document 07/24/17 16:54 GMD (Rec: 07/24/17 16:55 GMD [facility]) Pain Reassessment Is This A Pain ReAssessment? No Sleep Is patient sleeping during reassessment? No Oseltamivir Phosphate (Tamiflu Cap) 75 mg PO STAT STA PRN Reason: Protocol Stop: 07/24/17 17:31 Last Admin: 07/24/17 17:45 Dose: 75 mg Disposition/Present on Arrival - Present on Arrival Any Indicators Present on Arrival: No History of DVT/PE: No History of Uncontrolled Diabetes: No Urinary Catheter: No History of Decub. Ulcer: No History Surgical Site Infection Following: None - Disposition Have Diagnosis and Disposition been Completed?: Yes Diagnosis: Influenza Disposition: HOME/ ROUTINE Disposition Time: 17:57 Condition: STABLE Discharge Instructions (ExitCare): Influenza (ED) Additional Instructions: please follow up with your doctor. return to er with worsening symptoms or concerns. Prescriptions: Oseltamivir Phosphate [Tamiflu] 75 mg PO BID #10 capsule Referrals: [facility] [Outside] - Follow up with primary [facility] [place] [Outside] - Follow up with primary Daria Reddy MD [Primary Care Provider] - Follow up with primary Forms: [employer] (Tunisian)
[2017-07-24 17:29] LABS: INFLUENZA A B POS FOR INFLUENZA A (NEGATIVE)
[2017-07-24 18:05] VITALS: BP 123/78; PULSE 80; RESP 18; TEMP 98.4; O2SAT 98
== END 2017-07-24 18:05 | disposition home or self-care (01) ==
LOC: ED 16:23
DX: J11.1 Influenza due to unidentified influenza virus with other respiratory manifestations (principal); F17.210 Nicotine dependence, cigarettes, uncomplicated

== ENCOUNTER 2017-10-14 09:10 | Emergency (ER) | payer MEDICAID ==
[2017-10-14 09:25] VITALS: BMI 33.6
[2017-10-14 09:26] VITALS: TEMP 97.9
--- NOTE | 2017-10-14 09:43 | ED PDOC ---
Arrival/HPI - General Time Seen by Provider: 10/14/17 09:26 Historian: Patient - History of Present Illness Narrative History of Present Illness (Text): 10/14/17 09:39 Pt is a 27 yr old female with PMH of anxiety and bipolar disorder who presents tot the ED with a racing heart x 4 weeks. Pt states that she was placed on Wellbutrin for by her psychiatrist last month but has experienced a fast HR on and off since she started the medication. She is here today concerned that she might be having cardiac issues. Denies chest pain, shortness of breath, fever, nausea, vomiting, diarrhea, DAVIS or back pain, HI. SI or any other complaints Time/Duration: Prior to Arrival Symptom Onset: Gradual Symptom Course: Unchanged Quality: Unable to Describe Severity Level: 1 Activities at Onset: Rest Context: Sitting, Home Past Medical History - Provider Review Nursing Documentation Reviewed: Yes - Travel History Have you recently traveled outside [place] w/in the past 3 mons?: No - Infectious Disease Hx of Infectious Diseases: None - Tetanus Immunization Tetanus Immunization: Unknown - Past Medical History Past Medical History: No Previous - Cardiac Hx Cardiac Disorders: No - Pulmonary Hx Respiratory Disorders: No - Neurological Hx Neurological Disorder: No - HEENT Hx HEENT Disorder: No - Renal Hx Renal Disorder: No - Endocrine/Metabolic Hx Endocrine Disorders: No - Hematological/Oncological Hx Blood Disorders: Yes Hx Anemia: Yes - Integumentary Hx Dermatological Disorder: No - Musculoskeletal/Rheumatological Hx Musculoskeletal Disorders: No - Gastrointestinal Hx Gastrointestinal Disorders: Yes Hx Gastritis: Yes - Genitourinary/Gynecological Hx Genitourinary Disorders: No - Psychiatric Hx Psychophysiologic Disorder: Yes Hx Bipolar Disorder: Yes Hx Depression: No Hx Substance Use: No - Surgical History Hx Section: Yes (x 2) - Anesthesia Hx Anesthesia: Yes Hx Anesthesia Reactions: No Hx Malignant Hyperthermia: No - Suicidal Assessment Feels Threatened In Home Enviroment: No Family/Social History - Physician Review Nursing Documentation Reviewed: Yes Family/Social History: Unknown Family HX Smoking Status: Light Smoker < 10 Cigarettes Daily Hx Alcohol Use: Yes Hx Substance Use: No Hx Substance Use Treatment: No Allergies/Home Meds Allergies/Adverse Reactions: Allergies Penicillins Allergy (Verified 10/14/17 09:48) ANAPHYLAXIS Home Medications: Home Meds Medication Instructions Recorded Confirmed Topiramate [Topamax] 200 tab PO BID 04/28/17 10/14/17 lamoTRIgine [LaMICtal] 100 mg PO BID 04/28/17 10/14/17 buPROPion [Wellbutrin] 575 mg PO DAILY 10/14/17 10/14/17 Review of Systems - Review of Systems Constitutional: Normal Eyes: Normal ENT: Normal Respiratory: Normal. absent: SOB, Cough Cardiovascular: Palpitations. absent: Chest Pain, Edema, Calf Pain, Orthopnea, Syncope Gastrointestinal: Normal Genitourinary Female: Normal Musculoskeletal: Normal Skin: Normal Neurological: Normal. absent: Headache, Dizziness, Focal Weakness, Gait Changes Endocrine: Normal Hemo/Lymphatic: Normal Psychiatric: Anxiety Physical Exam Vital Signs Reviewed: Yes Vital Signs Temp Pulse Resp BP Pulse Ox 10/14/17 11:47 74 17 115/70 100 10/14/17 09:25 97.9 F 76 18 113/64 98 Temperature: Afebrile Blood Pressure: Normal Pulse: Regular Respiratory Rate: Normal Appearance: Positive for: Well-Appearing, Non-Toxic, Comfortable Pain Distress: None Mental Status: Positive for: Alert and Oriented X 3 - Systems Exam Head: Present: Atraumatic, Normocephalic Neck: Present: Normal Range of Motion Respiratory/Chest: Present: Clear to Auscultation, Good Air Exchange. No: Respiratory Distress, Accessory Muscle Use Cardiovascular: Present: Regular Rate and Rhythm, Normal S1, S2. No: Murmurs, Irregular Rhythm, Peripheal Pulses Present, Tachycardic Abdomen: Present: Normal Bowel Sounds. No: Tenderness, Distention, Peritoneal Signs Back: Present: Normal Inspection Upper Extremity: Present: Normal Inspection. No: Cyanosis, Edema Lower Extremity: Present: Normal Inspection. No: Edema Neurological: Present: GCS=15, CN II-XII Intact, Speech Normal Skin: Present: Warm, Dry, Normal Color. No: Rashes Psychiatric: Present: Alert, Oriented x 3, Normal Insight, Normal Concentration , Anxious Medical Decision Making ED Course and Treatment: 10/14/17 09:43 Impression Pt is a 27 yr old female with PMH of anxiety and bipolar disorder who presents tot the ED with a racing heart x 4 weeks. Plan UA, cbc, cmp, ekg Assess and dispo Progress note Labs reveal possible anemia but needs iron study done by PMD Counseled on current medications and side effects Advised to ask psychiatrist to modify or change the new medication if symptoms persist for greater than 6 weeks VSS and pt calm on d/c - Lab Interpretations Lab Results: 10/14/17 09:45 10/14/17 09:45 Lab Results 10/14/17 09:45: Sodium 142, Potassium 4.0, Chloride 111 H, Carbon Dioxide 19 L, Anion Gap 16, BUN 13, Creatinine 0.8, Est GFR ( Amer) > 60, Est GFR (Non- Af Amer) > 60, Random Glucose 93, Calcium 9.2, Total Bilirubin 0.3, AST 21, ALT 24, Alkaline Phosphatase 21 L, Total Protein 6.5, Albumin 4.0, Globulin 2.5, Albumin/Globulin Ratio 1.6 10/14/17 09:45: Urine Color Yellow, Urine Appearance Clear, Urine pH 6.0, Ur Specific [place] 1.020, Urine Protein Negative, Urine Glucose (UA) Negative, Urine Ketones Negative, Urine Blood Negative, Urine Nitrate Negative, Urine Bilirubin Negative, Urine Urobilinogen 0.2, Ur Leukocyte Esterase Trace H, Urine RBC Negative, Urine WBC 0 - 2, Ur Epithelial Cells 0 - 2, Urine Bacteria Few 10/14/17 09:45: WBC 5.4 D, RBC 4.29, Hgb 11.0 L, Hct 33.7 L, MCV 78.6 L, MCH 25.6, MCHC 32.6, RDW 15.8 H, Plt Count 215, MPV 10.4 I have reviewed the lab results: Yes Interpretation: All labs normal - EKG Interpretation Interpreted by ED Physician: Yes (NSR with a rate of 82) Disposition/Present on Arrival - Present on Arrival Any Indicators Present on Arrival: Yes History of DVT/PE: No History of Uncontrolled Diabetes: No Urinary Catheter: No History Surgical Site Infection Following: None - Disposition Have Diagnosis and Disposition been Completed?: Yes Diagnosis: Anxiety, Side effect of medication Disposition: HOME/ ROUTINE Disposition Time: 11:15 Patient Plan: Discharge Condition: GOOD Discharge Instructions (ExitCare): Anxiety, Adult (DC), Side Effects From Medicines Additional Instructions: Colette, thank you for letting us take care of you today. Your provider was NAI Welch. You were treated for Anxiety and possible effects of medication. The emergency medical care you received today was directed at your acute symptoms. If you were prescribed any medication, please fill it and take as directed. It may take several days for your symptoms to resolve. Return to the Emergency Department if your symptoms worsen, do not improve, or if you have any other problems. Please see your psychiatrist to discuss modifying your medications Please contact your doctor or call one of the physicians/clinics you have been referred to that are listed on the Patient Visit Information form that is included in your discharge packet. Bring any paperwork you were given at discharge with you along with any medications you are taking to your follow up visit. Our treatment cannot replace ongoing medical care by a primary care provider (PCP) outside of the emergency department. Thank you for allowing the [facility] team to be part of your care today. If you had a blood, urine, or wound culture: It will take several days for the results, if any change in treatment is needed we will contact you. Referrals: Delisa Jean MD [Primary Care Provider] - Follow up with primary Forms: [employer] (Maldivian)
[2017-10-14 10:03] LABS: MEAN CELL VOLUME 78.6 fl (80.0-105.0); MEAN CORPUSCULAR HEMOGLOBIN 25.6 pg (25.0-35.0); MEAN CORPUSCULAR HGB CONC 32.6 g/dl (31.0-37.0); MEAN PLATELET VOLUME 10.4 fl (7.0-11.0); RBC 4.29 10^6/uL (3.5-6.1); RED CELL DISTRIBUTION WIDTH 15.8 % (11.5-14.5); WHITE BLOOD COUNT 5.4 10^3/ul (4.5-11.0)
[2017-10-14 10:11] LABS: ALB/GLOB RATIO 1.6 (1.1-1.8); CALCIUM 9.2 mg/dL (8.4-10.5); GFR AFRICAN-AMERICAN > 60; GFR NON-AFRICAN AMERICAN > 60
[2017-10-14 10:13] LABS: URINE BILIRUBIN NEGATIVE (NEGATIVE); URINE BLOOD NEGATIVE (NEGATIVE); URINE GLUCOSE (UA) NEGATIVE (NEGATIVE); URINE LEUKOCYTE ESTERASE TRACE Leu/uL (NEGATIVE); URINE PROTEIN NEGATIVE mg/dL (<30 mg/dL); URINE UROBILINOGEN 0.2 E.U./dL (<1 E.U./dL)
[2017-10-14 10:20] LABS: URINE APPEARANCE CLEAR (CLEAR); URINE COLOR YELLOW (YELLOW)
[2017-10-14 10:23] LABS: URINE BACTERIA FEW (NEG); URINE EPITHELIAL CELLS 0 - 2 /hpf (0-5); URINE RBC NEGATIVE /hpf (0-2); URINE WBC 0 - 2 /hpf (0-6)
[2017-10-14 10:29] LABS: ALT/SGPT 24 U/L (7-56); AST/SGOT 21 U/L (14-36); BLOOD UREA NITROGEN 13 mg/dL (7-21)
[2017-10-14 11:49] VITALS: BP 115/70; PULSE 74; RESP 17; O2SAT 100
--- NOTE | 2017-10-14 19:16 | CARD ---
APPROVED REPORT EKG Measurement Heart [id number] <Conclusion> Normal sinus rhythm Normal ECG
== END 2017-10-14 11:49 | disposition home or self-care (01) ==
LOC: ED 09:10
DX: F41.9 Anxiety disorder, unspecified (principal); T43.295A Adverse effect of other antidepressants, initial encounter; Y92.009 Unspecified place in unspecified non-institutional (private) residence as the place of occurrence of the external cause; F17.210 Nicotine dependence, cigarettes, uncomplicated; F31.9 Bipolar disorder, unspecified

== ENCOUNTER 2017-11-30 22:59 | Emergency (ER) | payer MEDICAID, OTHER ==
[2017-11-30 22:59] VITALS: BMI 33.6
[2017-11-30 23:20] VITALS: RESP 18; TEMP 98.6
--- NOTE | 2017-11-30 23:54 | ED PDOC ---
Arrival/HPI - General Historian: Patient - History of Present Illness Time/Duration: < week Symptom Onset: Sudden Symptom Course: Unchanged Quality: Aching <Bajleet Pineda - Last Filed: 12/01/17 01:45> <Marco Hilton - Last Filed: 12/01/17 01:48> - General Chief Complaint: Back Pain Time Seen by Provider: 11/30/17 23:12 - History of Present Illness Narrative History of Present Illness (Text): 11/30/17 23:42 Pt is a 27 yo F with history of bipolar disorder presents to the ED due to back pain that radiates to abdomen. Patient states that her bowel movements have been normal and denies melena, hematochezia, diarrhea, hematuria, or dysuria. Patient states that the the FDLMP was 10/14/17 and has not had her menstrual period this month yet. Patient states that back pain has been present since around 2012-. She was evaluated and found to have a small fracture in her lumbar region. Patient followed up with orthopedist at that time who recommended physical therapy. However, PT did not help. Patient states that tylenol mildly helps, but does not want any narcotic medications due to fear of drug interactions with her bipolar medications. Patient denies any radiating symptoms, loss of bladder or bowel control, CP, SOB, n/v/d, fever, chills, DAVIS, or dizziness. (Baljeet Pineda) Past Medical History - Provider Review Nursing Documentation Reviewed: Yes - Infectious Disease Hx of Infectious Diseases: None - Tetanus Immunization Tetanus Immunization: Unknown - Past Medical History Past Medical History: No Previous - Cardiac Hx Cardiac Disorders: No - Pulmonary Hx Respiratory Disorders: No - Neurological Hx Neurological Disorder: No - HEENT Hx HEENT Disorder: No - Renal Hx Renal Disorder: No - Endocrine/Metabolic Hx Endocrine Disorders: No - Hematological/Oncological Hx Anemia: Yes - Integumentary Hx Dermatological Disorder: No - Musculoskeletal/Rheumatological Hx Musculoskeletal Disorders: No - Gastrointestinal Hx Gastritis: Yes - Genitourinary/Gynecological Hx Genitourinary Disorders: No - Psychiatric Hx Bipolar Disorder: Yes Hx Depression: No Hx Substance Use: No - Surgical History Hx Section: Yes (x 2) - Anesthesia Hx Anesthesia: Yes Hx Anesthesia Reactions: No Hx Malignant Hyperthermia: No - Suicidal Assessment Feels Threatened In Home Enviroment: No <Baljeet Pineda - Last Filed: 12/01/17 01:45> Family/Social History - Physician Review Nursing Documentation Reviewed: Yes Family/Social History: No Known Family HX Smoking Status: Light Smoker < 10 Cigarettes Daily Hx Alcohol Use: No Hx Substance Use: No Hx Substance Use Treatment: No <Baljeet Pineda - Last Filed: 12/01/17 01:45> Allergies/Home Meds <Baljeet Pineda - Last Filed: 12/01/17 01:45> <Marco Hilton - Last Filed: 12/01/17 01:48> Allergies/Adverse Reactions: Allergies Penicillins Allergy (Verified 11/30/17 23:15) ANAPHYLAXIS Home Medications: Home Meds Medication Instructions Recorded Confirmed Topiramate [Topamax] 200 tab PO BID 04/28/17 11/30/17 lamoTRIgine [LaMICtal] 100 mg PO BID 04/28/17 11/30/17 Review of Systems - Physician Review All systems were reviewed & negative as marked: Yes (12 point ROS reviewed and is negative other than what is stated in HPI.) <Baljeet Pineda - Last Filed: 12/01/17 01:45> Physical Exam Vital Signs Reviewed: Yes Temperature: Afebrile Blood Pressure: Normal Pulse: Regular Appearance: Positive for: Non-Toxic Pain Distress: Mild Mental Status: Positive for: Alert and Oriented X 3 - Systems Exam Head: Present: Atraumatic, Normocephalic Pupils: Present: PERRL Extroacular Muscles: Present: EOMI Conjunctiva: Present: Normal Mouth: Present: Moist Mucous Membranes Neck: Present: Normal Range of Motion Respiratory/Chest: Present: Clear to Auscultation, Good Air Exchange. No: Respiratory Distress, Accessory Muscle Use Cardiovascular: Present: Regular Rate and Rhythm, Normal S1, S2. No: Murmurs Abdomen: Present: Tenderness (periumbilical). No: Distention, Rebound, Guarding Back: Present: Paraspinal Tenderness (lumbar) Upper Extremity: Present: Normal Inspection. No: Cyanosis, Edema Lower Extremity: Present: Normal Inspection. No: Edema Neurological: Present: GCS=15, CN II-XII Intact, Speech Normal Skin: Present: Warm, Dry, Normal Color. No: Rashes Psychiatric: Present: Alert, Oriented x 3, Normal Insight, Normal Concentration <Baljeet Pineda - Last Filed: 12/01/17 01:45> Vital Signs Temp Pulse Resp BP Pulse Ox 11/30/17 23:16 98.6 F 71 18 112/74 100 Medical Decision Making <Baljeet Pineda - Last Filed: 12/01/17 01:45> <Marco Hilton - Last Filed: 12/01/17 01:48> ED Course and Treatment: 12/01/17 01:26 27 yo F presents with back pain and abdominal pain. Plan: - POC - UA - Serum beta-HCG - LS spine xray - Tramadol - Reassess and disposition POC negative. LS spine xray was reviewed by myself, shows old fracture of the L4 spinous process. Beta-HCG negative. 12/01/17 01:42 Patient advised to follow up with outpatient doctor. (Baljeet Pineda) Impression: Pt seen and evaluated with medical director occupational health. Pt, whose past medical history includes bipolar disorder, presented to the Emergency department for abdominal pain and back pain. Aware and agree with HPI, clinical findings, plan, and management. Plan: -- Transvaginal US -- XR Lumbar Spine -- Beta-HCG -- Reassess and disposition (Marco Hilton) - Lab Interpretations Lab Results: Lab Results 12/01/17 00:36: Urine Color Yellow, Urine Appearance Clear, Urine pH 6.0, Ur Specific [place] 1.025, Urine Protein Negative, Urine Glucose (UA) Negative, Urine Ketones Negative, Urine Blood Negative, Urine Nitrate Negative, Urine Bilirubin Negative, Urine Urobilinogen 0.2, Ur Leukocyte Esterase Trace H, Urine RBC 0 - 2, Urine WBC 1 - 3, Ur Epithelial Cells 1 - 3, Urine Bacteria Rare 12/01/17 00:36: Beta HCG, Quant < 2.39 - RAD Interpretation Radiology Orders: 12/01/17 00:04 LS SPINE AP/LAT [RAD] Stat - Medication Orders Current Medication Orders: Discontinued Medications Tramadol HCl (Ultram) 50 mg PO STAT STA Stop: 12/01/17 01:42 - PA / LEARNING ENGINEER / Resident Statement LAKSHMI has reviewed & agrees with the documentation as recorded. LAKSHMI has examined the patient and agrees with the treatment plan. <Marco Hilton - Last Filed: 12/01/17 01:48> Disposition/Present on Arrival - Present on Arrival Any Indicators Present on Arrival: No History of DVT/PE: No History of Uncontrolled Diabetes: No Urinary Catheter: No History of Decub. Ulcer: No History Surgical Site Infection Following: None - Disposition Have Diagnosis and Disposition been Completed?: Yes Disposition Time: :43 Patient Plan: Discharge <MiriamEdde - Last Filed: 12/01/17 01:45> <Marco Hilton - Last Filed: 12/01/17 01:48> - Disposition Diagnosis: Low back pain Disposition: HOME/ ROUTINE Patient Problems: Current Active Problems Problem Status Onset Low back pain Acute Condition: STABLE Discharge Instructions (ExitCare): Low Back Pain (DC) Additional Instructions: 1. Take Medications as needed for back pain 2. Follow up with PMD within 1 week 3. Return to ED if symptoms worsen VIOLETA JOINER, thank you for letting us take care of you today. Your provider was Marco Hilton MD and you were treated for stomach and back pain. The emergency medical care you received today was directed at your acute symptoms. If you were prescribed any medication, please fill it and take as directed. It may take several days for your symptoms to resolve. Return to the Emergency Department if your symptoms worsen, do not improve, or if you have any other problems. Please contact your doctor or call one of the physicians/clinics you have been referred to that are listed on the Patient Visit Information form that is included in your discharge packet. Bring any paperwork you were given at discharge with you along with any medications you are taking to your follow up visit. Our treatment cannot replace ongoing medical care by a primary care provider outside of the emergency department. Thank you for allowing the [facility] team to be part of your care today. Prescriptions: Tramadol HCl [Ultram] 50 mg PO Q6 PRN #12 tab PRN Reason: Pain, Moderate (4-7) Forms: [employer] (Telugu)
[2017-12-01 01:12] LABS: URINE BILIRUBIN NEGATIVE (NEGATIVE); URINE BLOOD NEGATIVE (NEGATIVE); URINE GLUCOSE (UA) NEGATIVE (NEGATIVE); URINE LEUKOCYTE ESTERASE TRACE Leu/uL (NEGATIVE); URINE PROTEIN NEGATIVE mg/dL (<30 mg/dL); URINE UROBILINOGEN 0.2 E.U./dL (<1 E.U./dL)
[2017-12-01 01:18] LABS: URINE APPEARANCE CLEAR (CLEAR); URINE COLOR YELLOW (YELLOW)
[2017-12-01 01:39] LABS: URINE BACTERIA RARE (NEG); URINE RBC 0 - 2 /hpf (0-2)
[2017-12-01 02:23] VITALS: BP 115/72; PULSE 68; O2SAT 99
--- NOTE | 2017-12-01 09:16 | RAD ---
PROCEDURE: Radiographs of the Lumbar Spine. HISTORY: lower back pain COMPARISON: No prior. FINDINGS: BONES: Normal alignment. No listhesis. No fracture. DISC SPACES: Unremarkable. OTHER FINDINGS: None. IMPRESSION: Unremarkable radiographs of the lumbar spine.
== END 2017-12-01 01:55 | disposition home or self-care (01) ==
LOC: ED 22:59
DX: M54.5 Low back pain (principal)

== ENCOUNTER 2018-01-28 16:47 | Emergency (ER) | payer MEDICAID, OTHER ==
[2018-01-28 17:22] VITALS: BMI 33.8
--- NOTE | 2018-01-28 17:29 | ED PDOC ---
Arrival/HPI - General Time Seen by Provider: 01/28/18 17:25 Historian: Patient - History of Present Illness Narrative History of Present Illness (Text): 01/28/18 17:29 This 27 yo F with history of bipolar disorder presents to the ED c/o vaginal bleeding since this morning. Patient also noted urinary frequency x 5 days. She stated she was seen at [facility], in which UA was negative for UTI. Patient also stated mild pelvic suprapubic cramping. Patient stated that last year had similar symptoms, and she was . She said urine was negative, however, blood test for detected her . Patient denies sob, cp, n/v, fever, trauma, dysuria, or vaginal discharge. Denies other somatic complains. Time/Duration: Other (see hpi) Context: Home Past Medical History - Provider Review Nursing Documentation Reviewed: Yes - Infectious Disease Hx of Infectious Diseases: None - Tetanus Immunization Tetanus Immunization: Unknown - Past Medical History Past Medical History: No Previous - Cardiac Hx Cardiac Disorders: No - Pulmonary Hx Respiratory Disorders: No - Neurological Hx Neurological Disorder: No - HEENT Hx HEENT Disorder: No - Renal Hx Renal Disorder: No - Endocrine/Metabolic Hx Endocrine Disorders: No - Hematological/Oncological Hx Anemia: Yes - Integumentary Hx Dermatological Disorder: No - Musculoskeletal/Rheumatological Hx Musculoskeletal Disorders: No - Gastrointestinal Hx Gastritis: Yes - Genitourinary/Gynecological Hx Genitourinary Disorders: No - Psychiatric Hx Bipolar Disorder: Yes Hx Depression: No Hx Substance Use: No - Surgical History Hx Section: Yes (x 2) - Anesthesia Hx Anesthesia: Yes Hx Anesthesia Reactions: No Hx Malignant Hyperthermia: No - Suicidal Assessment Feels Threatened In Home Enviroment: No Family/Social History - Physician Review Nursing Documentation Reviewed: Yes Family/Social History: Other (noncontributory) Smoking Status: Light Smoker < 10 Cigarettes Daily Hx Alcohol Use: No Hx Substance Use: No Hx Substance Use Treatment: No Allergies/Home Meds Allergies/Adverse Reactions: Allergies amoxicillin [From Augmentin] Allergy (Verified 01/28/18 17:41) ANAPHYLAXIS clavulanic acid [From Augmentin] Allergy (Verified 01/28/18 17:41) ANAPHYLAXIS Penicillins Allergy (Verified 01/28/18 17:41) ANAPHYLAXIS Review of Systems - Review of Systems Constitutional: Normal. absent: Fatigue, Weight Change, Fevers Eyes: Normal ENT: Normal Respiratory: Normal Cardiovascular: Normal Gastrointestinal: Other (see hpi) Genitourinary Female: Frequency, Vaginal Bleeding, Other (see hpi) Musculoskeletal: Normal Skin: Normal Neurological: Normal Endocrine: Normal Hemo/Lymphatic: Normal Psychiatric: Normal Physical Exam Vital Signs Temp Pulse Resp BP Pulse Ox 01/28/18 17:32 98.1 F 76 18 111/67 100 Temperature: Afebrile Blood Pressure: Normal Pulse: Regular Respiratory Rate: Normal Appearance: Positive for: Well-Appearing, Non-Toxic, Comfortable Pain Distress: None Mental Status: Positive for: Alert and Oriented X 3 - Systems Exam Head: Present: Atraumatic, Normocephalic Pupils: Present: PERRL Extroacular Muscles: Present: EOMI Conjunctiva: Present: Normal Mouth: Present: Moist Mucous Membranes Neck: Present: Normal Range of Motion Respiratory/Chest: Present: Clear to Auscultation, Good Air Exchange. No: Respiratory Distress, Accessory Muscle Use, Wheezes, Decreased Breath Sounds, Rales, Retracting, Rhonchi Cardiovascular: Present: Regular Rate and Rhythm, Normal S1, S2. No: Murmurs Abdomen: No: Tenderness, Distention, Peritoneal Signs, Rebound, Guarding Back: Present: Normal Inspection Upper Extremity: Present: Normal Inspection, Normal ROM. No: Cyanosis, Edema Lower Extremity: Present: Normal Inspection, Normal ROM. No: Edema Neurological: Present: GCS=15, CN II-XII Intact, Speech Normal, Motor Func Grossly Intact, Normal Sensory Function, Normal Cerebellar Funct, Gait Normal, Memory Normal Skin: Present: Warm, Dry, Normal Color. No: Rashes Psychiatric: Present: Alert, Oriented x 3, Normal Insight, Normal Concentration Medical Decision Making ED Course and Treatment: 01/28/18 20:26 Re-evaluation. Patient feels better. Discussed results and plan with patient who expresses understanding. All questions answered and there is agreement with the plan to discharge home with instructions. Patient stable for discharge. Return if symptoms persist or worsen. Re-evaluation Time: 20:26 Reassessment Condition: Re-examined, Improved - Lab Interpretations Lab Results: 01/28/18 19:06 01/28/18 19:06 Lab Results 01/28/18 19:06: Beta HCG, Quant < 2.39 01/28/18 19:06: Sodium 140, Potassium 4.0, Chloride 105, Carbon Dioxide 26, Anion Gap 14, BUN 11, Creatinine 0.5 L, Est GFR ( Amer) > 60, Est GFR ( Non-Af Amer) > 60, Random Glucose 76, Calcium 8.8, Magnesium 1.9, Total Bilirubin 0.1 L, AST 44 H D, ALT 30, Alkaline Phosphatase 37 L, Total Protein 6.5, Albumin 3.9, Globulin 2.6, Albumin/Globulin Ratio 1.5 01/28/18 19:06: Urine Color Yellow, Urine Appearance Sl cloudy, Urine pH 6.0, Ur Specific [place] >= 1.030, Urine Protein Trace H, Urine Glucose (UA) Negative , Urine Ketones Negative, Urine Blood Large H, Urine Nitrate Negative, Urine Bilirubin Negative, Urine Urobilinogen 0.2, Ur Leukocyte Esterase Negative, Urine RBC 1 - 3, Urine WBC 0 - 2, Ur Epithelial Cells 1 - 3, Urine HCG, Qual Negative 01/28/18 19:06: WBC 6.3, RBC 4.09, Hgb 10.2 L, Hct 31.4 L, MCV 76.8 L, MCH 24.9 L, MCHC 32.5, RDW 15.7 H, Plt Count 243, MPV 10.2, Gran % 54.3, Lymph % (Auto) 37.9 H, [place] % (Auto) 5.4, Eos % (Auto) 2.1, Baso % (Auto) 0.3, Gran # 3.45, Lymph # (Auto) 2.4, [place] # (Auto) 0.3, Eos # (Auto) 0.1, Baso # (Auto) 0.02 I have reviewed the lab results: Yes Interpretation: No clinic. lab abnormalty Disposition/Present on Arrival - Present on Arrival Any Indicators Present on Arrival: No History of DVT/PE: No History of Uncontrolled Diabetes: No Urinary Catheter: No History Surgical Site Infection Following: None - Disposition Have Diagnosis and Disposition been Completed?: Yes Diagnosis: Urinary frequency, Hematuria Disposition: HOME/ ROUTINE Disposition Time: 20:30 Patient Plan: Discharge Patient Problems: Current Active Problems Problem Status Onset Urinary frequency Acute Condition: IMPROVED Discharge Instructions (ExitCare): Blood in the Urine (Hematuria), Adult (DC) Additional Instructions: Call private doctor for follow up visit in 1-2 days. take medication as instructed. Make sure to review urine culture in 2-3 days. Return to emergency if symptoms worsen. Prescriptions: Nitrofurantoin Macrocrystals [Macrobid] 100 mg PO BID #14 cap Referrals: Delisa Jean MD [Primary Care Provider] - Follow up with primary [facility] [Outside] - [facility] with [facility] [Outside] - Follow up with primary
[2018-01-28 19:19] LABS: BASO # 0.02 K/mm3 (0.0-2.0); BASO % 0.3 % (0.0-3.0); EOS # 0.1 (0.0-0.7); EOS % 2.1 % (1.5-5.0); GRAN # 3.45 (1.4-6.5); GRAN % 54.3 % (50.0-68.0); HEMOGLOBIN 10.2 g/dL (12.0-16.0); LYMPH # 2.4 (1.2-3.4); LYMPH % 37.9 % (22.0-35.0); MEAN CELL VOLUME 76.8 fl (80.0-105.0); MEAN CORPUSCULAR HEMOGLOBIN 24.9 pg (25.0-35.0); MEAN CORPUSCULAR HGB CONC 32.5 g/dl (31.0-37.0); MEAN PLATELET VOLUME 10.2 fl (7.0-11.0); MONO # 0.3 (0.1-0.6); MONO % 5.4 % (1.0-6.0); RBC 4.09 10^6/uL (3.5-6.1); RED CELL DISTRIBUTION WIDTH 15.7 % (11.5-14.5); URINE APPEARANCE SL CLOUDY (CLEAR); URINE BILIRUBIN NEGATIVE (NEGATIVE); URINE BLOOD LARGE (NEGATIVE); URINE COLOR YELLOW (YELLOW); URINE GLUCOSE (UA) NEGATIVE (NEGATIVE); URINE LEUKOCYTE ESTERASE NEGATIVE Leu/uL (NEGATIVE); URINE PROTEIN TRACE mg/dL (<30 mg/dL); URINE UROBILINOGEN 0.2 E.U./dL (<1 E.U./dL); WHITE BLOOD COUNT 6.3 10^3/ul (4.5-11.0)
[2018-01-28 19:23] LABS: HCG,QUALITATIVE URINE NEGATIVE (NEGATIVE)
[2018-01-28 19:24] LABS: ALB/GLOB RATIO 1.5 (1.1-1.8); ALBUMIN 3.9 g/dL (3.0-4.8); ALT/SGPT 30 U/L (7-56); AST/SGOT 44 U/L (14-36); BLOOD UREA NITROGEN 11 mg/dL (7-21); CALCIUM 8.8 mg/dL (8.4-10.5); GFR AFRICAN-AMERICAN > 60; GFR NON-AFRICAN AMERICAN > 60; URINE WBC 0 - 2 /hpf (0-6)
[2018-01-28 20:57] VITALS: BP 118/66; PULSE 66; TEMP 98.6; O2SAT 98
[2018-01-28 20:58] VITALS: RESP 18
== END 2018-01-28 20:54 | disposition home or self-care (01) ==
LOC: ED 16:47
DX: R35.0 Frequency of micturition (principal); R31.9 Hematuria, unspecified; F17.210 Nicotine dependence, cigarettes, uncomplicated

== ENCOUNTER 2018-09-25 14:57 | Emergency (ER) | payer MEDICAID ==
[2018-09-25 14:59] VITALS: BMI 34.7
[2018-09-25 15:11] VITALS: RESP 18; TEMP 99.6
[2018-09-25] MEDS ORDERED: Sodium Chloride 0.9% 1,000 ML IV ONE (15:24)
--- NOTE | 2018-09-25 15:29 | ED PDOC ---
Arrival/HPI - General Chief Complaint: Abdominal Pain Time Seen by Provider: 09/25/18 15:00 - History of Present Illness Narrative History of Present Illness (Text): 28 yr old female w/ hx of UTI, Bipolar, Csection p/w suprapubic abdominal pain x2d. She notes the pain feels like a cramping pain similiar to her previous periods. She denies any fall or trauma or rashes. No vaginal d/c. No back pain or constipation / diarrhea / dark or bloody stool. She notes nausea but no vomiting. She denies any dysuria, urgency or frequency. No RLQ or LLQ pain. No upper gastric pain. No chest pain or SOB. No fever, chills or night sweats. LMP: 09/04/18, normal No other complaints. Past Medical History - Infectious Disease Hx of Infectious Diseases: None - Tetanus Immunization Tetanus Immunization: Unknown - Past Medical History Past Medical History: No Previous - Cardiac Hx Cardiac Disorders: No - Pulmonary Hx Respiratory Disorders: No - Neurological Hx Neurological Disorder: No - HEENT Hx HEENT Disorder: No - Renal Hx Renal Disorder: No - Endocrine/Metabolic Hx Endocrine Disorders: No - Hematological/Oncological Hx Anemia: Yes - Integumentary Hx Dermatological Disorder: No - Musculoskeletal/Rheumatological Hx Musculoskeletal Disorders: No - Gastrointestinal Hx Gastritis: Yes - Genitourinary/Gynecological Hx Genitourinary Disorders: No - Psychiatric Hx Bipolar Disorder: Yes Hx Depression: No Hx Substance Use: No - Surgical History Hx Section: Yes (x 2) - Anesthesia Hx Anesthesia: Yes Hx Anesthesia Reactions: No Hx Malignant Hyperthermia: No - Suicidal Assessment Feels Threatened In Home Enviroment: No Family/Social History Family/Social History: Unknown Family HX Smoking Status: Light Smoker < 10 Cigarettes Daily Hx Alcohol Use: No Hx Substance Use: No Hx Substance Use Treatment: No Allergies/Home Meds Allergies/Adverse Reactions: Allergies amoxicillin [From Augmentin] Allergy (Verified 09/25/18 15:11) ANAPHYLAXIS clavulanic acid [From Augmentin] Allergy (Verified 09/25/18 15:11) ANAPHYLAXIS Penicillins Allergy (Verified 09/25/18 15:11) ANAPHYLAXIS Home Medications: Home Meds Medication Instructions Recorded Confirmed No Known Home Med 02/21/18 09/25/18 Review of Systems - Review of Systems Constitutional: absent: Fatigue, Weight Change Eyes: absent: Vision Changes ENT: absent: Hearing Changes Respiratory: absent: SOB, Cough Cardiovascular: absent: Chest Pain, Palpitations, Edema Gastrointestinal: Abdominal Pain (suprapubic), Nausea. absent: Stool Changes, Constipation, Diarrhea, Vomiting Genitourinary Female: absent: Dysuria, Frequency, Hematuria, Urine Output Changes, Vaginal Bleeding, Vaginal Discharge Musculoskeletal: absent: Back Pain, Neck Pain Skin: absent: Rash, Pruritis Neurological: absent: Headache, Dizziness Endocrine: absent: Diaphoresis Hemo/Lymphatic: absent: Adenopathy Psychiatric: absent: Anxiety, Depression, Suicidal Ideation Physical Exam Vital Signs Temp Pulse Resp BP Pulse Ox 09/25/18 15:09 99.6 F 100 H 18 122/77 98 Temperature: Afebrile Blood Pressure: Normal Pulse: Tachycardic Respiratory Rate: Normal Appearance: Positive for: Well-Appearing, Non-Toxic, Comfortable Pain Distress: None Mental Status: Positive for: Alert and Oriented X 3 - Systems Exam Head: Present: Atraumatic, Normocephalic Pupils: Present: PERRL Extroacular Muscles: Present: EOMI Conjunctiva: Present: Normal Mouth: Present: Moist Mucous Membranes Pharnyx: Present: Normal. No: ERYTHEMA, EXUDATE Neck: Present: Normal Range of Motion. No: Meningeal Signs, MIDLINE TENDERNESS Respiratory/Chest: Present: Clear to Auscultation, Good Air Exchange. No: Respiratory Distress, Accessory Muscle Use Cardiovascular: Present: Regular Rate and Rhythm, Normal S1, S2. No: Murmurs Abdomen: Present: Tenderness (suprapubic), Normal Bowel Sounds. No: Distention, Peritoneal Signs, Rebound, Guarding, McBurney's Point Tender, Rovsing's Sign Present Back: Present: Normal Inspection. No: CVA Tenderness, Midline Tenderness, Paraspinal Tenderness Upper Extremity: Present: Normal Inspection. No: Cyanosis, Edema Lower Extremity: Present: Normal Inspection. No: Edema Neurological: Present: GCS=15, CN II-XII Intact, Speech Normal Skin: Present: Warm, Dry, Normal Color. No: Rashes Psychiatric: Present: Alert, Oriented x 3, Normal Insight, Normal Concentration, Normal Mood. No: Anxious, Agitated, Depressed Mood, Suicidal Ideation, Homicidal Ideation, Hallucinations Medical Decision Making ED Course and Treatment: 28 yr old female w/ hx of UTI, Bipolar, p/w suprapubic abdominal pain x2d. Likely period type pain vs UTI given description of pain being crampy like in nature similiar to previous period pain. Unlikely Abscess / TOA given no vaginal d/c, no high risk sexual activity, no hx of STD and no fever, chills or night sweats. Unlikley appdx type pain given no RLQ pain. U/L colitis given no LLQ pain. No CVAT or back pain, unlikely pyelo. Pt notes she took advil earlier for pain, will rx with tylenol. Pending imaging and labs. 09/25/2018 15:30 Transvaginal Ultrasound IMPRESSION: Small bilateral follicular cysts. Small cervical nabothian cysts. Dictator: Dr. Troy Urbina 09/25/18 18:03 labs unremarkable ovarian cyst noted on US pt in NAD, well appearing repeat abd exam non-ttp. No RLQ pain or any other pain. Pt refuses pelvic exam / vaginal exam I endorsed possible or disability if without exam. She notes understanding and would not like an exam or any antibiotics at this time. Given pt is without abdominal pain at this time, denies any vaginal d/c, and understands risks will d/c pt with return indications and f/u. She is agreeable to plan - RAD Interpretation Radiology Orders: 09/25/18 15:24 TRANSVAGINAL [US] Stat - Medication Orders Current Medication Orders: Sodium Chloride (Sodium Chloride 0.9%) 1,000 mls @ 250 mls/hr IV .Q4H ONE Stop: 09/25/18 19:23 Discontinued Medications Acetaminophen (Tylenol 325mg Tab) 650 mg PO STAT STA Stop: 09/25/18 15:25 Ondansetron HCl (Zofran Inj) 4 mg IVP STAT STA Stop: 09/25/18 15:25 Disposition/Present on Arrival - Present on Arrival Any Indicators Present on Arrival: No History of DVT/PE: No History of Uncontrolled Diabetes: No Urinary Catheter: No History of Decub. Ulcer: No History Surgical Site Infection Following: None - Disposition Have Diagnosis and Disposition been Completed?: Yes Diagnosis: Abdominal pain, Ovarian cyst Disposition: HOME/ ROUTINE Disposition Time: 18:06 Condition: STABLE Discharge Instructions (ExitCare): Acute Abdomen (Belly Pain), Adult (DC), Ovarian Cyst (DC) Additional Instructions: SEE YOUR OBGYN AND YOUR PRIMARY CARE DOCTOR [place] FOR YOU ABDOMINAL PAIN. RETURN IF WORSENS OR ANY OTHER ISSUES VIOLETA JOINER, thank you for letting us take care of you today. Your provider was Nikolay Mondragon and you were treated for ABDOMINAL PAIN (NEAR OVARIES ). The emergency medical care you received today was directed at your acute symptoms. If you were prescribed any medication, please fill it and take as directed. It may take several days for your symptoms to resolve. Return to the Emergency Department if your symptoms worsen, do not improve, or if you have any other problems. Please contact your doctor or call one of the physicians/clinics you have been referred to that are listed on the Patient Visit Information form that is included in your discharge packet. Bring any paperwork you were given at discharge with you along with any medications you are taking to your follow up visit. Our treatment cannot replace ongoing medical care by a primary care provider outside of the emergency department. Thank you for allowing the [facility] team to be part of your care today. If you had an X-Ray or CT scan: A Radiologist will review the ED reading if any change in treatment is needed we will contact you. If you had a blood, urine, or wound culture: It will take several days for the results, if any change in treatment is needed we will contact you. If you had an STI test: It will take 48 hours for the results. Please call after 1 week if you have not heard back. Referrals: Delisa Jean MD [Primary Care Provider] - Follow up with primary Annalise Davies MD [Staff Provider] - Follow up with primary [facility] [Outside] - Follow up with primary [facility] [Outside] - Follow up with primary [facility] [Outside] - [facility] [Outside] - Follow up with primary Forms: [employer] (Hungarian)
[2018-09-25 15:58] LABS: URINE BILIRUBIN NEGATIVE (NEGATIVE); URINE BLOOD NEGATIVE (NEGATIVE); URINE GLUCOSE (UA) NEGATIVE (NEGATIVE); URINE LEUKOCYTE ESTERASE NEGATIVE Leu/uL (NEGATIVE); URINE PROTEIN NEGATIVE mg/dL (<30 mg/dL); URINE UROBILINOGEN 0.2 E.U./dL (<1 E.U./dL)
[2018-09-25 16:02] LABS: ALB/GLOB RATIO 1.4 (1.1-1.8); ALT/SGPT 13 U/L (7-56); AST/SGOT 26 U/L (14-36); BASO # 0.03 K/mm3 (0.0-2.0); BASO % 0.4 % (0.0-3.0); BLOOD UREA NITROGEN 13 mg/dL (7-21); CALCIUM 8.9 mg/dL (8.4-10.5); EOS # 0.1 (0.0-0.7); EOS % 0.9 % (1.5-5.0); GFR NON-AFRICAN AMERICAN > 60; HEMOGLOBIN 10.9 g/dL (12.0-16.0); LIPASE 30 U/L (23-300); LYMPH # 1.9 (1.2-3.4); LYMPH % 24.2 % (22.0-35.0); MEAN CELL VOLUME 75.3 fl (80.0-105.0); MEAN CORPUSCULAR HGB CONC 31.9 g/dl (31.0-37.0); MEAN PLATELET VOLUME 10.5 fl (7.0-11.0); MONO # 0.4 (0.1-0.6); MONO % 5.1 % (1.0-6.0); RBC 4.54 10^6/uL (3.5-6.1); RED CELL DISTRIBUTION WIDTH 15.7 % (11.5-14.5); WHITE BLOOD COUNT 7.8 10^3/uL (4.5-11.0)
[2018-09-25 16:06] LABS: URINE APPEARANCE CLEAR (CLEAR); URINE COLOR YELLOW (YELLOW)
--- NOTE | 2018-09-25 17:14 | US ---
Date of service: 09/25/2018 HISTORY: suprapubic pain COMPARISON: Comparison made with prior pelvic ultrasound dated 10/19/2016. TECHNIQUE: Transabdominal/transvaginal sonographic evaluation of the pelvis performed FINDINGS: UTERUS: Measures 7.9 x 5.1 x 5.6 cm. Normal in size and appearance. No fibroid or other mass lesion seen. ENDOMETRIUM: Measures 5.2 mm in diameter. Unremarkable. CERVIX: Small cervical nabothian cyst present, the largest measuring approximately 6.6 mm and the 2nd measuring approximately 5.9 mm RIGHT OVARY: Measures 2.8 x 2.7 x 3.0 cm. No solid mass. Normal flow. Small follicular cyst present LEFT OVARY: Measures 2.4 x 1.8 x 2.0 cm. No solid mass. Normal flow. Small follicular cyst present cm FREE FLUID: No significant free fluid noted. OTHER FINDINGS: None. IMPRESSION: Small bilateral follicular cysts. Small cervical nabothian cysts.
[2018-09-25 18:33] VITALS: BP 114/72; PULSE 90; O2SAT 99
== END 2018-09-25 18:36 | disposition home or self-care (01) ==
LOC: ED 14:57
DX: N83.202 Unspecified ovarian cyst, left side (principal); N83.201 Unspecified ovarian cyst, right side; R10.9 Unspecified abdominal pain
CPT/HCPCS: 76830; 80053; 81003; 81025; 83690; 85025; 86850; 86900; 96361; 96374; 99283; J2405; J7030

== ENCOUNTER 2018-10-28 12:08 | Emergency (ER) | payer MEDICAID, OTHER ==
[2018-10-28 12:09] VITALS: BMI 34.7
[2018-10-28 12:36] VITALS: RESP 18; TEMP 98.5; O2SAT 98
[2018-10-28] MEDS ORDERED: Sodium Chloride 0.9% 1,000 ML IV STA (13:37)
[2018-10-28 14:02] LABS: BASO # 0.02 K/mm3 (0.0-2.0); BASO % 0.2 % (0.0-3.0); EOS # 0.2 (0.0-0.7); EOS % 1.9 % (1.5-5.0); HEMOGLOBIN 10.7 g/dL (12.0-16.0); LYMPH # 2.2 (1.2-3.4); LYMPH % 27.5 % (22.0-35.0); MEAN CELL VOLUME 75.9 fl (80.0-105.0); MEAN CORPUSCULAR HEMOGLOBIN 23.2 pg (25.0-35.0); MEAN CORPUSCULAR HGB CONC 30.6 g/dl (31.0-37.0); MEAN PLATELET VOLUME 10.2 fl (7.0-11.0); MONO # 0.4 (0.1-0.6); MONO % 4.8 % (1.0-6.0); RBC 4.61 10^6/uL (3.5-6.1); RED CELL DISTRIBUTION WIDTH 16.3 % (11.5-14.5); WHITE BLOOD COUNT 8.1 10^3/uL (4.5-11.0)
[2018-10-28 14:09] LABS: ALB/GLOB RATIO 1.4 (1.1-1.8); ALBUMIN 3.8 g/dL (3.0-4.8); ALT/SGPT 28 U/L (7-56); AST/SGOT 22 U/L (14-36); BLOOD UREA NITROGEN 13 mg/dL (7-21); CALCIUM 9.3 mg/dL (8.4-10.5); GFR NON-AFRICAN AMERICAN > 60; LIPASE 39 U/L (23-300)
[2018-10-28 14:33] LABS: URINE BILIRUBIN NEGATIVE (NEGATIVE); URINE BLOOD TRACE-LYSED (NEGATIVE); URINE GLUCOSE (UA) NEGATIVE (NEGATIVE); URINE LEUKOCYTE ESTERASE MODERATE Leu/uL (NEGATIVE); URINE PROTEIN NEGATIVE mg/dL (<30 mg/dL); URINE UROBILINOGEN 0.2 E.U./dL (<1 E.U./dL)
[2018-10-28 14:48] LABS: URINE APPEARANCE CLEAR (CLEAR); URINE COLOR YELLOW (YELLOW)
[2018-10-28 14:50] LABS: URINE BACTERIA MANY /hpf; URINE WBC 20 - 25 /hpf (0-6)
--- NOTE | 2018-10-28 15:34 | ED PDOC ---
Arrival/HPI - General Chief Complaint: Abdominal Pain Time Seen by Provider: 10/28/18 12:17 Historian: Patient - History of Present Illness Narrative History of Present Illness (Text): 10/28/18 16:20 28-year-old female presents today with lower abdominal pain. Patient denies chest pain or shortness of breath. Denies back pain. Patient denies vomiting or diarrhea but states she has some slight nausea. Patient states she has had similar pain in the lower abdomen about 3 weeks ago. Patient states she has not followed up with anyone. Patient states after her visit to the emergency room the pain went away for about 2-1/2 weeks and Has returned. Patient is complaining of slight urinary frequency. Denies dysuria. Denies vaginal bleeding or vaginal discharge. Patient states her last menstrual period Was October 02 and she wants a blood test to check for . Past Medical History - Provider Review Nursing Documentation Reviewed: Yes - Travel History Have you recently traveled outside [place] w/in the past 3 mons?: No - Infectious Disease Hx of Infectious Diseases: None - Tetanus Immunization Tetanus Immunization: Unknown - Reproductive Menopause: No - Past Medical History Past Medical History: No Previous - Cardiac Hx Cardiac Disorders: No - Pulmonary Hx Respiratory Disorders: No - Neurological Hx Neurological Disorder: No - HEENT Hx HEENT Disorder: No - Renal Hx Renal Disorder: No - Endocrine/Metabolic Hx Endocrine Disorders: No - Hematological/Oncological Hx Anemia: Yes - Integumentary Hx Dermatological Disorder: No - Musculoskeletal/Rheumatological Hx Musculoskeletal Disorders: No - Gastrointestinal Hx Gastritis: Yes - Genitourinary/Gynecological Hx Genitourinary Disorders: No - Psychiatric Hx Bipolar Disorder: Yes Hx Depression: No Hx Substance Use: No - Surgical History Hx Section: Yes (x 2) - Anesthesia Hx Anesthesia: Yes Hx Anesthesia Reactions: No Hx Malignant Hyperthermia: No - Suicidal Assessment Feels Threatened In Home Enviroment: No Family/Social History - Physician Review Nursing Documentation Reviewed: Yes Family/Social History: Unknown Family HX Smoking Status: Light Smoker < 10 Cigarettes Daily Hx Alcohol Use: No Hx Substance Use: No Hx Substance Use Treatment: No Allergies/Home Meds Allergies/Adverse Reactions: Allergies amoxicillin [From Augmentin] Allergy (Verified 09/25/18 15:11) ANAPHYLAXIS clavulanic acid [From Augmentin] Allergy (Verified 09/25/18 15:11) ANAPHYLAXIS Penicillins Allergy (Verified 09/25/18 15:11) ANAPHYLAXIS Review of Systems - Review of Systems Constitutional: absent: Fatigue, Fevers Respiratory: absent: SOB, Cough Cardiovascular: absent: Chest Pain, Palpitations Gastrointestinal: Abdominal Pain, Nausea. absent: Constipation, Diarrhea, Vomiting Genitourinary Female: Frequency. absent: Dysuria, Hematuria, Vaginal Bleeding, Vaginal Discharge Musculoskeletal: absent: Arthralgias, Back Pain, Neck Pain Skin: absent: Rash, Pruritis Neurological: absent: Headache, Dizziness Psychiatric: absent: Anxiety, Depression, Suicidal Ideation Physical Exam Vital Signs Reviewed: Yes Vital Signs Temp Pulse Resp BP Pulse Ox 10/28/18 12:28 98.5 F 96 H 18 125/76 98 Temperature: Afebrile Blood Pressure: Normal Pulse: Tachycardic Respiratory Rate: Normal Appearance: Positive for: Well-Appearing, Non-Toxic, Comfortable Pain Distress: None Mental Status: Positive for: Alert and Oriented X 3 - Systems Exam Head: Present: Atraumatic Mouth: Present: Moist Mucous Membranes Neck: Present: Normal Range of Motion Respiratory/Chest: Present: Clear to Auscultation, Good Air Exchange. No: Respiratory Distress, Accessory Muscle Use Cardiovascular: Present: Regular Rate and Rhythm, Normal S1, S2. No: Murmurs Abdomen: Present: Tenderness (+ minimal suprapubic and rlq and llq tenderness.). No: Distention, Peritoneal Signs, Rebound, Guarding Back: Present: Normal Inspection. No: CVA Tenderness, Midline Tenderness, Paraspinal Tenderness Upper Extremity: Present: Normal Inspection Lower Extremity: Present: Normal Inspection Neurological: Present: GCS=15, Speech Normal Skin: Present: Warm, Dry, Normal Color. No: Rashes Psychiatric: Present: Alert, Oriented x 3 Medical Decision Making ED Course and Treatment: 10/28/18 16:22 Patient is nontoxic well appearing with stable vital signs presenting with lower abdominal pain CBC wnl CMP wnl Lipase wnl Urinalysis + leukocytes Ultrasound: FINDINGS: UTERUS: Measures 5.4 x 5.6 x 9.3 cm. Normal in size and appearance. No fibroid or other mass lesion seen. ENDOMETRIUM: Measures 4.5 mm in diameter. No ultrasound findings to suggest gestational sac, fluid, debris, mass or polyp or other pathologic process within the endometrium. CERVIX: No cervical abnormality identified.Incidental finding: Nabothian cysts the largest measures less than 1 cm RIGHT OVARY: Measures 2.5 x 2.3 x 3.1 cm. No solid mass. Normal flow. Multiple subcentimeter follicles. LEFT OVARY: Measures 3.6 x 2.2 x 4.8 cm. No solid mass. Normal flow. Simple cyst 2.3 x 2.8 x 2.8 cm. FREE FLUID: No significant free fluid noted. OTHER FINDINGS: None. IMPRESSION: No acute or significant findings related to/ accounting for the clinical presentation. Additional benign and/or incidental findings described above. No significant interval change compared to the prior examination(s). CAT scan: FINDINGS: LOWER THORAX: Unremarkable. LIVER: Unremarkable. No gross lesion or ductal dilatation. GALLBLADDER AND BILE DUCTS: Unremarkable. PANCREAS: Unremarkable. No gross lesion or ductal dilatation. SPLEEN: Unremarkable. ADRENALS: Unremarkable. No mass. KIDNEYS AND URETERS: Unremarkable. No hydronephrosis. No solid mass. VASCULATURE: Unremarkable. No aortic aneurysm. No aortic atherosclerotic calcification or mural plaque present. BOWEL: Unremarkable. No obstruction. No gross mural thickening. APPENDIX: Normal appendix. PERITONEUM: Unremarkable. No free fluid. No free air. LYMPH NODES: Unremarkable. No enlarged lymph nodes. BLADDER: Unremarkable. REPRODUCTIVE: 2.5 cm left ovarian cyst. BONES: No acute fracture. OTHER FINDINGS: None. IMPRESSION: Unremarkable contrast enhanced CT of the abdomen and pelvis. Patient reassessment: pt is resting comfortably; hungry; requesting food; no vomiting in er. pt started on macrobid for UTI Discussed all results with patient in depth Patient was advised to follow-up with the primary care physician, urologist and SERVER ASSISTANT within the next 2 days. Patient was advised me to return if symptoms worsen persist or if new concerning symptoms develop. Patient was advised to take medications as prescribed. Patient verbalizes understanding of discharge instructions and need for immediate followup. All aspects of this case were discussed the attending of record. Impression: Abdominal pain, UTI Motrin every 6 hours as needed for pain macrobid: 1 tablet twice daily x 10 days. Follow up with primary care physician within the next 2 days Follow up with the SERVER ASSISTANT and urologist within the next 2 days. Return immediately if symptoms worsen persist or if new symptoms develop: High fevers, increasing pain, vomiting, diarrhea or any other concerning symptoms develop - Lab Interpretations Lab Results: Total Bilirubin 0.2 mg/dL (0.2-1.3) 05/16/19 13:50 AST 22 U/L (14-36) 10/28/18 13:50 ALT 28 U/L (7-56) 10/28/18 13:50 Alkaline Phosphatase 30 U/L (38-126) L 10/28/18 13:50 Total Protein 6.6 g/dL (5.8-8.3) 10/28/18 13:50 Albumin 3.8 g/dL (3.0-4.8) 10/28/18 13:50 Globulin 2.7 gm/dL 10/28/18 13:50 Albumin/Globulin Ratio 1.4 (1.1-1.8) 10/28/18 13:50 Lipase 39 U/L (23-300) 10/28/18 13:50 Urine Color Yellow (YELLOW) 10/28/18 13:27 Urine Appearance Clear (CLEAR) 10/28/18 13:27 Urine pH 6.0 (4.7-8.0) 10/28/18 13:27 Ur Specific Jakin 1.015 (1.005-1.035) 10/28/18 13:27 Urine Protein Negative mg/dL (<30 mg/dL) 10/28/18 13:27 Urine Glucose (UA) Negative mg/dL (NEGATIVE) 10/28/18 13:27 Urine Ketones Negative mg/dL (NEGATIVE) 10/28/18 13:27 Urine Blood Trace-lysed (NEGATIVE) H 10/28/18 13:27 Urine Nitrate Negative (NEGATIVE) 10/28/18 13:27 Urine Bilirubin Negative (NEGATIVE) 10/28/18 13:27 Urine Urobilinogen 0.2 E.U./dL (<1 E.U./dL) 10/28/18 13:27 Ur Leukocyte Esterase Moderate Adarsh/uL (NEGATIVE) H 10/28/18 13:27 Urine RBC 2 - 5 /hpf (0-2) H 10/28/18 13:27 Urine WBC 20 - 25 /hpf (0-6) H 10/28/18 13:27 Ur Epithelial Cells 4 - 5 /hpf (0-5) 10/28/18 13:27 Urine Bacteria Many /hpf (NONE) 10/28/18 13:27 Beta HCG, Quant < 2.39 mIU/mL (0-6.15) 10/28/18 13:50 - RAD Interpretation Radiology Orders: 10/28/18 13:37 TRANSVAGINAL [US] Stat 10/28/18 14:38 ABD & PELVIS IV CONTRAST ONLY [CT] Stat - Medication Orders Current Medication Orders: Discontinued Medications Sodium Chloride (Sodium Chloride 0.9%) 1,000 mls @ 999 mls/hr IV .Q1H1M STA Stop: 10/28/18 14:37 Last Admin: 10/28/18 13:44 Dose: 999 mls/hr eMAR Start Stop Document 10/28/18 13:44 EQ (Rec: 10/28/18 13:44 EQ [id number]) Intravenous Solution Start Date 10/28/18 Start Time 13:44 Disposition/Present on Arrival - Present on Arrival Any Indicators Present on Arrival: No History of DVT/PE: No History of Uncontrolled Diabetes: No Urinary Catheter: No History of Decub. Ulcer: No History Surgical Site Infection Following: None - Disposition Have Diagnosis and Disposition been Completed?: Yes Diagnosis: UTI (urinary tract infection), Abdominal pain Disposition: HOME/ ROUTINE Disposition Time: 16:24 Patient Plan: Discharge Condition: GOOD Discharge Instructions (ExitCare): Urinary Tract Infection, Adult (DC), Acute Abdomen (Belly Pain), Adult (DC) Additional Instructions: Motrin every 6 hours as needed for pain macrobid: 1 tablet twice daily x 10 days. Follow up with primary care physician within the next 2 days Follow up with the SERVER ASSISTANT and urologist within the next 2 days. Return immediately if symptoms worsen persist or if new symptoms develop: High fevers, increasing pain, vomiting, diarrhea or any other concerning symptoms develop Prescriptions: Ibuprofen [Motrin] 600 mg PO Q6H PRN #20 tab PRN Reason: pain/fever reduction Nitrofurantoin Macrocrystals [Macrobid] 100 mg PO BID #20 cap Referrals: Delisa Jean MD [Primary Care Provider] - Follow up with primary Horacio Bhandari MD [Staff Provider] - Follow up with primary Troy Garcia MD [Staff Provider] - Follow up with primary [facility] [Outside] - Follow up with primary Forms: [employer] (Nepalese), WORK NOTE
--- NOTE | 2018-10-28 15:47 | CT ---
Date of service: 10/28/2018 PROCEDURE: CT Abdomen and Pelvis with contrast HISTORY: lower abd pain COMPARISON: 04/22/2013 TECHNIQUE: Contrast dose: 150 cc of Omni 350 Radiation dose: Total exam DLP = 815.86 mGy-cm. This CT exam was performed using one or more of the following dose reduction techniques: Automated exposure control, adjustment of the mA and/or kV according to patient size, and/or use of iterative reconstruction technique. FINDINGS: LOWER THORAX: Unremarkable. LIVER: Unremarkable. No gross lesion or ductal dilatation. GALLBLADDER AND BILE DUCTS: Unremarkable. PANCREAS: Unremarkable. No gross lesion or ductal dilatation. SPLEEN: Unremarkable. ADRENALS: Unremarkable. No mass. KIDNEYS AND URETERS: Unremarkable. No hydronephrosis. No solid mass. VASCULATURE: Unremarkable. No aortic aneurysm. No aortic atherosclerotic calcification or mural plaque present. BOWEL: Unremarkable. No obstruction. No gross mural thickening. APPENDIX: Normal appendix. PERITONEUM: Unremarkable. No free fluid. No free air. LYMPH NODES: Unremarkable. No enlarged lymph nodes. BLADDER: Unremarkable. REPRODUCTIVE: 2.5 cm left ovarian cyst. BONES: No acute fracture. OTHER FINDINGS: None. IMPRESSION: Unremarkable contrast enhanced CT of the abdomen and pelvis.
--- NOTE | 2018-10-28 15:59 | US ---
Date of service: 10/28/2018 HISTORY: Lower abdominal pain. Beta HCG results: Less than 2.5 units. LMP 10/02/2018. COMPARISON: 09/25/2018. Pelvic ultrasound October 28, 2018. CT abdomen and pelvis. TECHNIQUE: Transvaginal only. Real -time technique with 2D, duplex and color Doppler FINDINGS: UTERUS: Measures 5.4 x 5.6 x 9.3 cm. Normal in size and appearance. No fibroid or other mass lesion seen. ENDOMETRIUM: Measures 4.5 mm in diameter. No ultrasound findings to suggest gestational sac, fluid, debris, mass or polyp or other pathologic process within the endometrium. CERVIX: No cervical abnormality identified.Incidental finding: Nabothian cysts the largest measures less than 1 cm RIGHT OVARY: Measures 2.5 x 2.3 x 3.1 cm. No solid mass. Normal flow. Multiple subcentimeter follicles. LEFT OVARY: Measures 3.6 x 2.2 x 4.8 cm. No solid mass. Normal flow. Simple cyst 2.3 x 2.8 x 2.8 cm. FREE FLUID: No significant free fluid noted. OTHER FINDINGS: None. IMPRESSION: No acute or significant findings related to/ accounting for the clinical presentation. Additional benign and/or incidental findings described above. No significant interval change compared to the prior examination(s).
[2018-10-28 17:08] VITALS: BP 128/74; PULSE 78
== END 2018-10-28 17:07 | disposition home or self-care (01) ==
LOC: ED 12:08
DX: N39.0 Urinary tract infection, site not specified (principal); R10.30 Lower abdominal pain, unspecified; F17.210 Nicotine dependence, cigarettes, uncomplicated
CPT/HCPCS: 74177; 76830; 80053; 81001; 81025; 83690; 84702; 85025; 87086; 87181; 99283; J7030; Q9967